=== PATIENT | male | born 1995 | race Caucasian/White ===

== ENCOUNTER 2023-06-21 20:56 | Inpatient (IN) | payer MEDICAID ==
[~2023-06-21] VITALS: Ht 175.3 cm; Wt 76.7 kg
[2023-06-21 22:29] LABS: BASOPHILS % (AUTO) 0.2 % (0-1); EOSINOPHILS % (AUTO) 0 % (0-6); HEMATOCRIT 46.3 % (42.0-52.0); HEMOGLOBIN 15.7 g/dl (14.0-17.9); LYMPHOCYTES # (AUTO) 1.6 X10'3 (1.1-4.8); LYMPHOCYTES % (AUTO) 14.3 % (21-51); MEAN CORPUSCULAR HEMOGLOBIN 29.8 PG (27.0-31.0); MEAN CORPUSCULAR HGB CONC 33.9 g/dL (33.0-36.5); MEAN PLATELET VOLUME 8.2 FL (7.4-10.4); MONOCYTES # (AUTO) 0.9 X10'3 (0-0.9); MONOCYTES % (AUTO) 8.4 % (2-12); NEUTROPHILS # (AUTO) 8.4 X10'3 (1.8-7.7); NEUTROPHILS % (AUTO) 77.1 % (42-75); PLATELET COUNT 187 X10'3 (140-440); RED BLOOD COUNT 5.26 X10'6 (4.70-6.10); RED CELL DISTRIBUTION WIDTH 13.8 % (11.5-14.5); WHITE BLOOD COUNT 10.9 X10'3 (4.5-11.0)
[2023-06-21 22:44] LABS: ALANINE AMINOTRANSFERASE 20 U/L (12-78); ALBUMIN 4.1 G/DL (3.4-5.0); ALBUMIN/GLOBULIN RATIO 1.1 (1.1-1.5); ALKALINE PHOSPHATASE 55 IU/L (46-116); ANION GAP 10 (8-16); ASPARTATE AMINO TRANSFERASE 19 U/L (10-37); BILIRUBIN,TOTAL 0.3 MG/DL (0.1-1.0); BLOOD UREA NITROGEN 9 MG/DL (7-18); CALCIUM 9.1 MG/DL (8.5-10.1); CHLORIDE 104 MMOL/L (99-107); ETHANOL < 10 MG/DL (<10); GLUCOSE 108 MG/DL (70-104); SODIUM 139 MMOL/L (135-145); TOTAL CARBON DIOXIDE 25.5 MMOL/L (24-32); TOTAL PROTEIN 7.7 G/DL (6.4-8.2); eCRCL 116 ML/MIN; eGFR > 90 ML/MIN
[2023-06-22 00:37] LABS: URINE AMPHETAMINE SCREEN NEGATIVE (Neg); URINE BARBITUATE SCREEN NEGATIVE (Neg); URINE BENZODIAZEPINES SCREEN NEGATIVE (Neg); URINE CANNABINOID SCREEN NEGATIVE (Neg); URINE COCAINE SCREEN NEGATIVE (Neg); URINE METHADONE SCREEN NEGATIVE (Neg); URINE OPIATE SCREEN NEGATIVE (Neg); URINE PHENCYCLIDINE SCREEN NEGATIVE (Neg)
[2023-06-22] MEDS ORDERED: BENZ1TAB93 PO (02:24)
[2023-06-22] MEDS ORDERED: CLOZ25TA36 PO (02:24)
[2023-06-22] MEDS ORDERED: CLON1TAB2 PO ×2 (02:24→02:50)
[2023-06-22] MEDS ORDERED: CLOZ200T8 PO (02:24)
[2023-06-22] MEDS ORDERED: LAMO100T PO (02:24)
[2023-06-22] MEDS ORDERED: IBUP-1984 PO (02:24)
[2023-06-22] MEDS ORDERED: CLOZ100T21 PO (02:24)
[2023-06-22] MEDS ORDERED: CLOZ50TA9 PO (02:38)
[2023-06-22] MEDS ORDERED: CLON-850 PO (02:57)
[2023-06-22] MEDS ORDERED: PROP10TA10 PO (03:55)
[2023-06-22] MEDS: clozapine 100mg tablet PO SCH ×2 (08:25→20:04)
[2023-06-22] MEDS: clozapine 25mg tablet PO SCH (08:26)
[2023-06-22] MEDS: ibuprofen tablet 400 MG TABLET PO SCH (08:26)
[2023-06-22] MEDS: propranolol 10mg tablet PO SCH (08:26)
[2023-06-22] MEDS: lamoTRIgine 100mg tablet PO SCH (08:26)
[2023-06-22] MEDS: benztropine 1mg tablet PO SCH (08:26)
[2023-06-22] MEDS: LORazepam 1 MG tablet PO ONE (20:03)
[2023-06-22] MEDS ORDERED: magnesium hydroxide 30ml (MOM) UD suspension PO PRN (22:05)
[2023-06-22] MEDS ORDERED: loperamide 2mg capsule PO PRN (22:05)
[2023-06-22 22:55] VITALS: BP 120/72; PULSE 93; RESP 16; TEMP 97.5; O2SAT 100
[2023-06-22] MEDS: NICOTINE POLACRILEX 2 MG LOZENGE BC PRN (23:01)
[2023-06-22] MEDS: clonazePAM 1mg tablet PO PRN (23:02)
[2023-06-22 23:16] VITALS: RESP 16
[2023-06-23 07:00] VITALS: RESP 16
[2023-06-23 08:00] VITALS: BP 90/62; PULSE 85; RESP 16; TEMP 97.1; O2SAT 98
[2023-06-23] MEDS: nicotine 21mg patch - 24 hr TD SCH (08:00)
[2023-06-23 08:57] LABS: CHOL/HDL RATIO 2.9 (0.00-4.99); CHOLESTEROL 140 MG/DL (0-200); HDL CHOLESTEROL 48 MG/DL (35-60); LDL CHOLESTEROL 66 MG/DL (50-100); TRIGLYCERIDES 222 MG/DL (20-135)
[2023-06-23 08:58] LABS: HEMOGLOBIN A1C 4.5 % (4.5-6.2)
[2023-06-23] MEDS: pneumococcal 23-VAL P-sac vacc 25 mcg/0.5ml vial IMVAC ONE (11:32)
[2023-06-23 19:00] VITALS: RESP 14; O2SAT 100
[2023-06-23 19:35] VITALS: BP 93/51; PULSE 97; RESP 14; TEMP 98.4; O2SAT 100
[2023-06-24 07:14] VITALS: RESP 16
[2023-06-24 08:00] VITALS: BP 116/67; PULSE 68; RESP 14; TEMP 97.9; O2SAT 99
[2023-06-24 19:00] VITALS: RESP 14; O2SAT 96
[2023-06-24 20:32] VITALS: BP 94/52; PULSE 107; RESP 14; TEMP 98.7; O2SAT 96
[2023-06-24] MEDS: LORazepam 1 MG tablet PO ONE (21:56)
[2023-06-25 07:00] VITALS: RESP 14; O2SAT 98
[2023-06-25 08:00] VITALS: BP 110/62; PULSE 87; RESP 14; TEMP 97.6; O2SAT 98
[2023-06-25 19:00] VITALS: RESP 16; O2SAT 100
[2023-06-25 20:00] VITALS: BP 128/84; PULSE 110; RESP 16; TEMP 97.6; O2SAT 100
[2023-06-26 07:00] VITALS: RESP 16; O2SAT 100
[2023-06-26 08:00] VITALS: BP 119/86; PULSE 97; RESP 16; TEMP 97.2; O2SAT 100
[2023-06-26 08:13] LABS: BASOPHILS % (AUTO) 0.2 % (0-1); EOSINOPHILS % (AUTO) 0 % (0-6); HEMOGLOBIN 14.9 g/dl (14.0-17.9); LYMPHOCYTES % (AUTO) 35.3 % (21-51); MEAN CORPUSCULAR HEMOGLOBIN 29.9 PG (27.0-31.0); MEAN CORPUSCULAR HGB CONC 33.9 g/dL (33.0-36.5); MEAN CORPUSCULAR VOLUME 88.4 FL (78-98); MEAN PLATELET VOLUME 8.5 FL (7.4-10.4); MONOCYTES # (AUTO) 0.6 X10'3 (0-0.9); MONOCYTES % (AUTO) 10.4 % (2-12); NEUTROPHILS % (AUTO) 54.1 % (42-75); PLATELET COUNT 166 X10'3 (140-440); RED BLOOD COUNT 4.97 X10'6 (4.70-6.10); RED CELL DISTRIBUTION WIDTH 13.6 % (11.5-14.5); WHITE BLOOD COUNT 5.6 X10'3 (4.5-11.0)
[2023-06-26 19:00] VITALS: RESP 18; O2SAT 99
[2023-06-26 20:00] VITALS: BP 138/85; PULSE 93; RESP 18; TEMP 98.2; O2SAT 99
[2023-06-26] MEDS: NICOTINE POLACRILEX 2 MG LOZENGE BC PRN (21:54)
[2023-06-27 07:00] VITALS: RESP 16; O2SAT 99
[2023-06-27 08:00] VITALS: BP 110/80; PULSE 74; RESP 16; TEMP 97.7; O2SAT 99
[2023-06-27 19:00] VITALS: RESP 18; O2SAT 98
[2023-06-27 20:00] VITALS: BP 141/81; PULSE 100; RESP 18; TEMP 97.6; O2SAT 98
[2023-06-28 07:00] VITALS: RESP 16; O2SAT 98
[2023-06-28 08:00] VITALS: BP 90/60; PULSE 84; RESP 16; TEMP 98.2; O2SAT 98
[2023-06-28 19:00] VITALS: RESP 16; O2SAT 100
[2023-06-28 19:07] VITALS: BP 124/80; PULSE 99; RESP 16; TEMP 97.8; O2SAT 100
[2023-06-29] MEDS: clonazePAM 1mg tablet PO PRN (02:27)
[2023-06-29 07:30] VITALS: BP 98/62; PULSE 86; RESP 12; TEMP 97.8; O2SAT 97
[2023-06-29 19:00] VITALS: RESP 14; O2SAT 99
[2023-06-29 20:00] VITALS: BP 126/74; PULSE 120; RESP 14; TEMP 98; O2SAT 99
[2023-06-29] MEDS: clozapine 100mg tablet PO SCH (20:22)
[2023-06-29] MEDS: clozapine 25mg tablet PO SCH (20:24)
[2023-06-29 22:49] VITALS: PULSE 106
[2023-06-30 07:00] VITALS: RESP 14; O2SAT 98
[2023-06-30 08:00] VITALS: BP 92/55; PULSE 104; RESP 14; TEMP 97.7; O2SAT 98
[2023-06-30 19:32] VITALS: BP 122/79; PULSE 110; RESP 18; TEMP 98.5; O2SAT 99
[2023-07-01 07:00] VITALS: RESP 14; O2SAT 98
[2023-07-01 08:00] VITALS: BP 99/56; PULSE 79; RESP 14; TEMP 97.1; O2SAT 97
[2023-07-01 12:06] LABS: BASOPHILS % (AUTO) 0.5 % (0-1); EOSINOPHILS % (AUTO) 0 % (0-6); HEMATOCRIT 47.1 % (42.0-52.0); HEMOGLOBIN 15.9 g/dl (14.0-17.9); LYMPHOCYTES # (AUTO) 1.3 X10'3 (1.1-4.8); LYMPHOCYTES % (AUTO) 26.3 % (21-51); MEAN CORPUSCULAR HEMOGLOBIN 29.7 PG (27.0-31.0); MEAN CORPUSCULAR HGB CONC 33.8 g/dL (33.0-36.5); MEAN CORPUSCULAR VOLUME 87.9 FL (78-98); MEAN PLATELET VOLUME 8.2 FL (7.4-10.4); MONOCYTES # (AUTO) 0.7 X10'3 (0-0.9); MONOCYTES % (AUTO) 13.4 % (2-12); NEUTROPHILS # (AUTO) 3.1 X10'3 (1.8-7.7); NEUTROPHILS % (AUTO) 59.8 % (42-75); PLATELET COUNT 166 X10'3 (140-440); RED BLOOD COUNT 5.36 X10'6 (4.70-6.10); RED CELL DISTRIBUTION WIDTH 13.7 % (11.5-14.5); WHITE BLOOD COUNT 5.1 X10'3 (4.5-11.0)
[2023-07-01 19:00] VITALS: RESP 16; O2SAT 97
[2023-07-01 20:00] VITALS: BP 118/79; PULSE 104; RESP 16; TEMP 98.1; O2SAT 97
[2023-07-01] MEDS: OLANZapine **IM** 10 mg inj. IM ONE (22:07)
[2023-07-02] MEDS: LORazepam 2 mg/ml vial IM ONE (00:16)
[2023-07-02] MEDS: haloperidol lactate 5mg/ml inj IM ONE (01:52)
[2023-07-02 06:43] VITALS: RESP 14; O2SAT 98
[2023-07-02 08:00] VITALS: BP 98/65; PULSE 59
[2023-07-02] MEDS: acetaminophen 325mg tablet PO PRN (14:20)
[2023-07-02 19:00] VITALS: RESP 16; O2SAT 100
[2023-07-02 20:00] VITALS: BP 129/89; PULSE 120; RESP 16; TEMP 97.3; O2SAT 100
[2023-07-02] MEDS: propranolol 10mg tablet PO SCH (22:06)
[2023-07-03 07:58] VITALS: RESP 14; O2SAT 98
[2023-07-03 08:03] VITALS: BP 109/59; PULSE 105; RESP 18; TEMP 97.9; O2SAT 99
[2023-07-03 08:16] LABS: BASOPHILS % (AUTO) 0.3 % (0-1); EOSINOPHILS % (AUTO) 0 % (0-6); HEMATOCRIT 43.5 % (42.0-52.0); HEMOGLOBIN 14.5 g/dl (14.0-17.9); LYMPHOCYTES # (AUTO) 2.4 X10'3 (1.1-4.8); LYMPHOCYTES % (AUTO) 30.5 % (21-51); MEAN CORPUSCULAR HEMOGLOBIN 29.5 PG (27.0-31.0); MEAN CORPUSCULAR HGB CONC 33.4 g/dL (33.0-36.5); MEAN CORPUSCULAR VOLUME 88.4 FL (78-98); MEAN PLATELET VOLUME 8.5 FL (7.4-10.4); MONOCYTES # (AUTO) 1.2 X10'3 (0-0.9); MONOCYTES % (AUTO) 14.6 % (2-12); NEUTROPHILS # (AUTO) 4.4 X10'3 (1.8-7.7); NEUTROPHILS % (AUTO) 54.6 % (42-75); PLATELET COUNT 175 X10'3 (140-440); RED BLOOD COUNT 4.92 X10'6 (4.70-6.10); RED CELL DISTRIBUTION WIDTH 13.4 % (11.5-14.5)
[2023-07-03 19:00] VITALS: RESP 14; O2SAT 98
[2023-07-03 20:00] VITALS: BP 117/71; PULSE 119; RESP 14; TEMP 98.2; O2SAT 98
[2023-07-03 22:22] VITALS: PULSE 101
[2023-07-04 07:00] VITALS: RESP 14; O2SAT 98
[2023-07-04 07:03] VITALS: BP 105/61; PULSE 89; RESP 14; TEMP 98.2; O2SAT 98
[2023-07-04 19:00] VITALS: RESP 16; O2SAT 98
[2023-07-04 20:00] VITALS: BP 122/71; PULSE 110; RESP 16; TEMP 98.7; O2SAT 98
[2023-07-05 07:00] VITALS: RESP 16; O2SAT 97
[2023-07-05 08:00] VITALS: BP 110/63; PULSE 87; RESP 16; TEMP 98.2; O2SAT 97
[2023-07-05 19:00] VITALS: RESP 16; O2SAT 99
[2023-07-05 20:00] VITALS: BP 122/69; PULSE 112; RESP 16; TEMP 98.7; O2SAT 99
[2023-07-06 07:30] VITALS: BP 109/49; PULSE 90; RESP 18; TEMP 98.4; O2SAT 97
[2023-07-06 19:00] VITALS: RESP 16; O2SAT 99
[2023-07-06 20:00] VITALS: BP 128/80; PULSE 116; RESP 16; TEMP 97; O2SAT 99
[2023-07-07 07:00] VITALS: RESP 18; O2SAT 97
[2023-07-07 08:00] VITALS: BP 91/50; PULSE 83; RESP 16; TEMP 97.6; O2SAT 98
[2023-07-07 19:30] VITALS: BP 134/83; PULSE 125; RESP 16; TEMP 98.4; O2SAT 98
[2023-07-08 07:00] VITALS: RESP 18; O2SAT 97
[2023-07-08 08:00] VITALS: BP 95/53; PULSE 97; RESP 16; TEMP 98.5; O2SAT 96
[2023-07-08 19:30] VITALS: BP 117/87; PULSE 115; RESP 14; TEMP 98.3; O2SAT 100
[2023-07-09 07:00] VITALS: RESP 18; O2SAT 99
[2023-07-09 08:00] VITALS: BP 91/56; PULSE 88; RESP 18; TEMP 97.9; O2SAT 99
[2023-07-09] MEDS ORDERED: ibuprofen tablet 400 MG TABLET PO PRN (15:30)
[2023-07-09 19:00] VITALS: RESP 20; O2SAT 99
[2023-07-09 19:44] VITALS: BP 119/80; PULSE 121; RESP 20; TEMP 97.7; O2SAT 99
[2023-07-09] MEDS: OLANZapine 5mg rapidly disint. tablet PO ONE (21:25)
[2023-07-10 07:00] VITALS: RESP 16; O2SAT 100
[2023-07-10 07:18] VITALS: BP 113/77; PULSE 98; RESP 16; TEMP 98.2; O2SAT 100
[2023-07-10 10:41] LABS: BASOPHILS % (AUTO) 0.5 % (0-1); EOSINOPHILS % (AUTO) 0 % (0-6); HEMATOCRIT 42.1 % (42.0-52.0); HEMOGLOBIN 14.6 g/dl (14.0-17.9); LYMPHOCYTES # (AUTO) 1.8 X10'3 (1.1-4.8); LYMPHOCYTES % (AUTO) 26.4 % (21-51); MEAN CORPUSCULAR HEMOGLOBIN 30.1 PG (27.0-31.0); MEAN CORPUSCULAR HGB CONC 34.8 g/dL (33.0-36.5); MEAN CORPUSCULAR VOLUME 86.7 FL (78-98); MEAN PLATELET VOLUME 8.2 FL (7.4-10.4); MONOCYTES # (AUTO) 0.9 X10'3 (0-0.9); MONOCYTES % (AUTO) 13.1 % (2-12); NEUTROPHILS # (AUTO) 4.2 X10'3 (1.8-7.7); PLATELET COUNT 182 X10'3 (140-440); RED BLOOD COUNT 4.86 X10'6 (4.70-6.10); RED CELL DISTRIBUTION WIDTH 13.3 % (11.5-14.5)
[2023-07-10 19:00] VITALS: RESP 16; O2SAT 98
[2023-07-10 20:00] VITALS: BP 125/80; PULSE 112; RESP 16; TEMP 97.8; O2SAT 98
[2023-07-11 07:00] VITALS: RESP 14; O2SAT 97
[2023-07-11 07:15] VITALS: BP 92/64; PULSE 81; RESP 14; TEMP 98.2; O2SAT 97
[2023-07-11 19:00] VITALS: RESP 16; O2SAT 99
[2023-07-11 19:18] VITALS: BP 124/76; PULSE 112; RESP 16; TEMP 98.2; O2SAT 99
[2023-07-12 07:00] VITALS: RESP 14; O2SAT 99
[2023-07-12 08:00] VITALS: BP 116/75; PULSE 108; RESP 14; TEMP 97.7; O2SAT 99
[2023-07-12 19:00] VITALS: RESP 18; O2SAT 98
[2023-07-12 19:15] VITALS: BP 121/87; PULSE 109; RESP 18; TEMP 98.6; O2SAT 98
[2023-07-13 07:00] VITALS: RESP 16; O2SAT 97
[2023-07-13 07:15] VITALS: BP 108/69; PULSE 94; RESP 16; TEMP 98.2; O2SAT 97
[2023-07-13 19:25] VITALS: BP 116/70; PULSE 107; RESP 18; TEMP 98.9; O2SAT 98
[2023-07-13 19:26] VITALS: RESP 18; O2SAT 98
[2023-07-14 07:00] VITALS: RESP 16; O2SAT 98
[2023-07-14 08:00] VITALS: BP 142/58; PULSE 89; RESP 16; TEMP 97.8; O2SAT 98
[2023-07-14 19:00] VITALS: BP 122/78; PULSE 111; RESP 18; TEMP 98.6; O2SAT 99
[2023-07-15 07:00] VITALS: RESP 16; O2SAT 96
[2023-07-15 08:00] VITALS: BP 101/64; PULSE 99; RESP 16; TEMP 97.7; O2SAT 95
[2023-07-15 19:00] VITALS: RESP 18; O2SAT 98
[2023-07-15 20:00] VITALS: BP 130/87; PULSE 111; RESP 18; TEMP 98.6; O2SAT 98
[2023-07-16 07:00] VITALS: BP 99/52; PULSE 89; RESP 14; TEMP 98.4; O2SAT 99
[2023-07-16 19:15] VITALS: BP 121/77; PULSE 110; RESP 16; TEMP 98.8; O2SAT 100
[2023-07-17 07:00] VITALS: BP 90/50; PULSE 74; RESP 16; TEMP 97.9; O2SAT 95
[2023-07-17 10:35] LABS: BASOPHILS % (AUTO) 0.4 % (0-1); EOSINOPHILS % (AUTO) 0 % (0-6); HEMATOCRIT 44.5 % (42.0-52.0); HEMOGLOBIN 15.2 g/dl (14.0-17.9); LYMPHOCYTES # (AUTO) 1.4 X10'3 (1.1-4.8); MEAN CORPUSCULAR HGB CONC 34.2 g/dL (33.0-36.5); MEAN CORPUSCULAR VOLUME 87.6 FL (78-98); MEAN PLATELET VOLUME 8.1 FL (7.4-10.4); MONOCYTES # (AUTO) 0.6 X10'3 (0-0.9); MONOCYTES % (AUTO) 12.9 % (2-12); NEUTROPHILS # (AUTO) 2.3 X10'3 (1.8-7.7); NEUTROPHILS % (AUTO) 53.7 % (42-75); PLATELET COUNT 170 X10'3 (140-440); RED BLOOD COUNT 5.07 X10'6 (4.70-6.10); RED CELL DISTRIBUTION WIDTH 13.3 % (11.5-14.5); WHITE BLOOD COUNT 4.3 X10'3 (4.5-11.0)
[2023-07-17 19:53] VITALS: BP 133/92; PULSE 129; RESP 18; TEMP 98.4; O2SAT 100
[2023-07-18 07:00] VITALS: RESP 16; O2SAT 95
[2023-07-18 08:00] VITALS: BP 92/54; PULSE 62; RESP 16; TEMP 98.4; O2SAT 95
[2023-07-18 19:39] VITALS: BP 134/93; PULSE 118; RESP 18; TEMP 98.4; O2SAT 100
[2023-07-19 07:00] VITALS: RESP 16; O2SAT 97
[2023-07-19 08:00] VITALS: BP 105/58; PULSE 92; RESP 16; TEMP 97.6; O2SAT 97
[2023-07-19 19:00] VITALS: RESP 16; O2SAT 100
[2023-07-19 19:12] VITALS: BP 133/84; PULSE 110; RESP 16; TEMP 98.6; O2SAT 100
[2023-07-20 07:00] VITALS: RESP 14; O2SAT 98
[2023-07-20 07:46] VITALS: BP 92/52; PULSE 78; RESP 14; TEMP 98.4; O2SAT 98
[2023-07-20 19:00] VITALS: RESP 16; O2SAT 99
[2023-07-20 19:37] VITALS: BP 135/94; PULSE 120; RESP 16; TEMP 98.7; O2SAT 99
[2023-07-21 07:05] VITALS: RESP 14; O2SAT 98
[2023-07-21 08:00] VITALS: BP 108/64; PULSE 89; RESP 14; TEMP 97.8; O2SAT 99
[2023-07-21 19:00] VITALS: RESP 17; O2SAT 100
[2023-07-21 20:00] VITALS: BP 129/86; PULSE 125; RESP 17; TEMP 98.4; O2SAT 100
[2023-07-22 06:33] LABS: BASOPHILS % (AUTO) 0.4 % (0-1); EOSINOPHILS % (AUTO) 0 % (0-6); HEMATOCRIT 45.2 % (42.0-52.0); HEMOGLOBIN 15.6 g/dl (14.0-17.9); LYMPHOCYTES % (AUTO) 39.8 % (21-51); MEAN CORPUSCULAR HEMOGLOBIN 30.2 PG (27.0-31.0); MEAN CORPUSCULAR HGB CONC 34.5 g/dL (33.0-36.5); MEAN CORPUSCULAR VOLUME 87.6 FL (78-98); MEAN PLATELET VOLUME 8.5 FL (7.4-10.4); MONOCYTES # (AUTO) 0.6 X10'3 (0-0.9); MONOCYTES % (AUTO) 11.8 % (2-12); NEUTROPHILS # (AUTO) 2.4 X10'3 (1.8-7.7); PLATELET COUNT 174 X10'3 (140-440); RED BLOOD COUNT 5.15 X10'6 (4.70-6.10); RED CELL DISTRIBUTION WIDTH 13.1 % (11.5-14.5); WHITE BLOOD COUNT 5.1 X10'3 (4.5-11.0)
[2023-07-22 08:00] VITALS: BP 97/59; PULSE 86; RESP 12; TEMP 97.7; O2SAT 99
[2023-07-22 19:00] VITALS: BP 121/78; PULSE 120; RESP 17; TEMP 98.2; O2SAT 99
[2023-07-23 07:20] VITALS: RESP 18; O2SAT 96
[2023-07-23 08:00] VITALS: BP 120/69; PULSE 88; RESP 14; TEMP 97.6; O2SAT 100
[2023-07-23 19:00] VITALS: BP 129/72; PULSE 122; RESP 18; TEMP 98.9; O2SAT 99
[2023-07-24 07:00] VITALS: RESP 16; O2SAT 96
[2023-07-24 08:00] VITALS: BP 108/80; PULSE 83; RESP 16; TEMP 98.6; O2SAT 96
[2023-07-24 10:08] LABS: MEAN PLATELET VOLUME 8.7 FL (7.4-10.4); WHITE BLOOD COUNT 4.7 X10'3 (4.5-11.0)
[2023-07-24 10:11] LABS: BASOPHILS % (AUTO) 0.3 % (0-1); EOSINOPHILS % (AUTO) 0.1 % (0-6); HEMATOCRIT 42.7 % (42.0-52.0); HEMOGLOBIN 14.8 g/dl (14.0-17.9); LYMPHOCYTES # (AUTO) 1.9 X10'3 (1.1-4.8); LYMPHOCYTES % (AUTO) 41.4 % (21-51); MEAN CORPUSCULAR HEMOGLOBIN 30.4 PG (27.0-31.0); MEAN CORPUSCULAR HGB CONC 34.7 g/dL (33.0-36.5); MEAN CORPUSCULAR VOLUME 87.5 FL (78-98); MONOCYTES # (AUTO) 0.5 X10'3 (0-0.9); MONOCYTES % (AUTO) 10.9 % (2-12); NEUTROPHILS # (AUTO) 2.2 X10'3 (1.8-7.7); NEUTROPHILS % (AUTO) 47.3 % (42-75); PLATELET COUNT 164 X10'3 (140-440); RED BLOOD COUNT 4.88 X10'6 (4.70-6.10); RED CELL DISTRIBUTION WIDTH 13.2 % (11.5-14.5)
[2023-07-24 19:00] VITALS: RESP 18; O2SAT 100
[2023-07-24 19:20] VITALS: BP 126/89; PULSE 118; RESP 18; TEMP 98.3; O2SAT 100
[2023-07-25 07:30] VITALS: BP 99/54; PULSE 92; RESP 16; TEMP 97.8; O2SAT 92
[2023-07-25 19:24] VITALS: BP 122/78; PULSE 116; RESP 16; TEMP 97.9; O2SAT 100
[2023-07-25 19:31] VITALS: RESP 16; O2SAT 100
[2023-07-26 07:00] VITALS: RESP 14; O2SAT 98
[2023-07-26 08:00] VITALS: BP 97/57; PULSE 83; RESP 14; TEMP 97.4; O2SAT 98
[2023-07-26 19:40] VITALS: BP 120/84; PULSE 130; RESP 16; TEMP 98.1; O2SAT 98
[2023-07-27 07:30] VITALS: BP 117/62; PULSE 92; RESP 14; TEMP 98.2; O2SAT 96
[2023-07-27 19:00] VITALS: BP 114/72; PULSE 112; RESP 18; TEMP 98.5; O2SAT 100
[2023-07-28 06:58] VITALS: RESP 14; O2SAT 96
[2023-07-28 08:00] VITALS: BP 98/50; PULSE 96; RESP 12; TEMP 98.1; O2SAT 96
[2023-07-28 19:30] VITALS: BP 123/81; PULSE 122; RESP 20; TEMP 97.9; O2SAT 98
[2023-07-29 07:39] VITALS: RESP 14; O2SAT 96
[2023-07-29 08:00] VITALS: BP 91/44; PULSE 84; RESP 16; TEMP 97.8; O2SAT 98
[2023-07-29 19:30] VITALS: BP 123/90; PULSE 120; RESP 20; TEMP 98.2; O2SAT 100
[2023-07-29] MEDS: olanzapine 10mg tablet PO ONE (21:34)
[2023-07-30 07:40] VITALS: RESP 16; O2SAT 97
[2023-07-30 08:00] VITALS: BP 95/57; PULSE 87; RESP 16; TEMP 97; O2SAT 97
[2023-07-30 19:00] VITALS: RESP 16; O2SAT 100
[2023-07-30 20:07] VITALS: BP 128/80; PULSE 118; RESP 18; TEMP 98.2; O2SAT 100
[2023-07-31 07:00] VITALS: BP 107/64; PULSE 60; RESP 16; TEMP 97.2; O2SAT 95
[2023-07-31 10:43] LABS: BASOPHILS % (AUTO) 0.4 % (0-1); EOSINOPHILS % (AUTO) 0 % (0-6); HEMATOCRIT 44.8 % (42.0-52.0); HEMOGLOBIN 15.2 g/dl (14.0-17.9); LYMPHOCYTES # (AUTO) 1.7 X10'3 (1.1-4.8); LYMPHOCYTES % (AUTO) 27.7 % (21-51); MEAN CORPUSCULAR HEMOGLOBIN 29.6 PG (27.0-31.0); MEAN CORPUSCULAR VOLUME 87.1 FL (78-98); MEAN PLATELET VOLUME 8.4 FL (7.4-10.4); MONOCYTES # (AUTO) 0.7 X10'3 (0-0.9); MONOCYTES % (AUTO) 11.7 % (2-12); NEUTROPHILS # (AUTO) 3.8 X10'3 (1.8-7.7); NEUTROPHILS % (AUTO) 60.2 % (42-75); PLATELET COUNT 158 X10'3 (140-440); RED BLOOD COUNT 5.14 X10'6 (4.70-6.10); WHITE BLOOD COUNT 6.3 X10'3 (4.5-11.0)
[2023-07-31 19:00] VITALS: RESP 18; O2SAT 100
[2023-07-31 19:53] VITALS: BP 130/89; PULSE 116; RESP 18; TEMP 97.8; O2SAT 100
[2023-08-01 07:00] VITALS: BP 98/54; PULSE 94; RESP 18; TEMP 98.1; O2SAT 99
[2023-08-01 19:00] VITALS: RESP 18; O2SAT 99
[2023-08-01 20:57] VITALS: BP 143/83; PULSE 108; RESP 18; TEMP 98.5; O2SAT 99
[2023-08-02 07:00] VITALS: RESP 12; O2SAT 97
[2023-08-02 08:00] VITALS: BP_SYST 107; BP_SYST 94; BP_DIAS 57; BP_DIAS 69; PULSE 60; PULSE 99; RESP 12; TEMP 97.2; TEMP 98.1; O2SAT 96; O2SAT 97
[2023-08-02 19:00] VITALS: RESP 16; O2SAT 99
[2023-08-02 20:00] VITALS: BP 140/74; PULSE 114; RESP 16; TEMP 98.4; O2SAT 99
[2023-08-03 07:30] VITALS: BP 110/68; PULSE 90; RESP 16; TEMP 97.6; O2SAT 100
[2023-08-03 19:00] VITALS: RESP 14; O2SAT 100
[2023-08-03 20:00] VITALS: BP 120/81; PULSE 107; RESP 14; TEMP 98.1; O2SAT 100
[2023-08-04] MEDS: traZODone 50mg tablet PO PRN (02:15)
[2023-08-04 07:00] VITALS: BP 125/68; PULSE 110; RESP 16; TEMP 98.6; O2SAT 98
[2023-08-04 19:00] VITALS: RESP 20; O2SAT 100
[2023-08-04 19:30] VITALS: BP 136/96; PULSE 114; RESP 20; TEMP 98.5; O2SAT 100
[2023-08-05 07:00] VITALS: RESP 16; O2SAT 95
[2023-08-05 08:00] VITALS: BP 81/51; PULSE 85; RESP 16; TEMP 97.8; O2SAT 98
[2023-08-05 19:00] VITALS: RESP 16; O2SAT 98
[2023-08-05 20:00] VITALS: BP 137/80; PULSE 136; RESP 16; TEMP 97.8; O2SAT 98
[2023-08-06 07:00] VITALS: RESP 14; O2SAT 97
[2023-08-06 08:00] VITALS: BP 91/50; PULSE 104; RESP 14; TEMP 97.7; O2SAT 97
[2023-08-06 19:00] VITALS: RESP 14; O2SAT 97
[2023-08-06 20:00] VITALS: BP 128/72; PULSE 110; RESP 14; TEMP 98.5; O2SAT 97
[2023-08-07 07:00] VITALS: RESP 14; O2SAT 99
[2023-08-07 08:00] VITALS: BP 101/60; PULSE 71; RESP 14; TEMP 97.6; O2SAT 99
[2023-08-07 08:55] LABS: BASOPHILS % (AUTO) 0.2 % (0-1); EOSINOPHILS % (AUTO) 0 % (0-6); HEMATOCRIT 48.5 % (42.0-52.0); HEMOGLOBIN 16.6 g/dl (14.0-17.9); LYMPHOCYTES # (AUTO) 1.8 X10'3 (1.1-4.8); LYMPHOCYTES % (AUTO) 29.5 % (21-51); MEAN CORPUSCULAR HEMOGLOBIN 29.9 PG (27.0-31.0); MEAN CORPUSCULAR HGB CONC 34.2 g/dL (33.0-36.5); MEAN CORPUSCULAR VOLUME 87.2 FL (78-98); MEAN PLATELET VOLUME 8.1 FL (7.4-10.4); MONOCYTES # (AUTO) 0.6 X10'3 (0-0.9); MONOCYTES % (AUTO) 9.8 % (2-12); NEUTROPHILS # (AUTO) 3.7 X10'3 (1.8-7.7); NEUTROPHILS % (AUTO) 60.5 % (42-75); PLATELET COUNT 181 X10'3 (140-440); RED BLOOD COUNT 5.56 X10'6 (4.70-6.10); RED CELL DISTRIBUTION WIDTH 13.2 % (11.5-14.5); WHITE BLOOD COUNT 6.1 X10'3 (4.5-11.0)
[2023-08-07 19:50] VITALS: RESP 20; O2SAT 99
[2023-08-07 20:00] VITALS: BP 134/72; PULSE 137; RESP 20; TEMP 98.4; O2SAT 99
[2023-08-08 07:00] VITALS: RESP 14; O2SAT 99
[2023-08-08 08:00] VITALS: BP 97/60; PULSE 89; RESP 14; TEMP 97.3; O2SAT 99
[2023-08-08 19:00] VITALS: RESP 16; O2SAT 99
[2023-08-08 20:08] VITALS: BP 115/77; PULSE 126; RESP 16; TEMP 98.8; O2SAT 99
[2023-08-09 07:00] VITALS: RESP 14; O2SAT 98
[2023-08-09 08:00] VITALS: BP 102/70; PULSE 98; RESP 14; TEMP 96.6; O2SAT 98
[2023-08-09 19:00] VITALS: BP 117/75; PULSE 120; RESP 14; TEMP 97.9; O2SAT 100
[2023-08-10 07:00] VITALS: RESP 19; O2SAT 98
[2023-08-10 08:00] VITALS: BP 98/51; PULSE 99; RESP 19; TEMP 99.3; O2SAT 98
[2023-08-10 08:09] VITALS: BP 110/70; PULSE 104
[2023-08-10 19:27] VITALS: BP 131/79; PULSE 128; RESP 20; TEMP 98.1; O2SAT 99
[2023-08-11 07:00] VITALS: BP 95/58; PULSE 85; RESP 12; TEMP 96.6; O2SAT 98
[2023-08-11] MEDS: clozapine 25mg tablet PO SCH (11:38)
[2023-08-11 19:38] VITALS: BP 133/86; PULSE 133; RESP 20; TEMP 97.8; O2SAT 100
[2023-08-12 07:33] VITALS: BP 98/51; PULSE 90; RESP 16; TEMP 97.5; O2SAT 98
[2023-08-12 19:00] VITALS: BP 135/83; PULSE 124; RESP 18; TEMP 98.7; O2SAT 98
[2023-08-13 07:00] VITALS: BP 85/54; PULSE 93; RESP 16; TEMP 97.8; O2SAT 99
[2023-08-13] MEDS: clozapine 25mg tablet PO ONE (16:46)
[2023-08-13 19:00] VITALS: RESP 18; O2SAT 98
[2023-08-13 20:07] VITALS: BP 142/85; PULSE 137; RESP 18; TEMP 97.8; O2SAT 98
[2023-08-14 07:00] VITALS: RESP 17; O2SAT 97
[2023-08-14 08:00] VITALS: BP 91/55; PULSE 90; RESP 17; TEMP 98; O2SAT 97
[2023-08-14] MEDS: clozapine 100mg tablet PO SCH (12:30)
[2023-08-14 14:56] LABS: BASOPHILS % (AUTO) 0.3 % (0-1); EOSINOPHILS % (AUTO) 0 % (0-6); HEMATOCRIT 44.8 % (42.0-52.0); HEMOGLOBIN 15.1 g/dl (14.0-17.9); LYMPHOCYTES # (AUTO) 1.2 X10'3 (1.1-4.8); LYMPHOCYTES % (AUTO) 21.8 % (21-51); MEAN CORPUSCULAR HEMOGLOBIN 29.2 PG (27.0-31.0); MEAN CORPUSCULAR HGB CONC 33.6 g/dL (33.0-36.5); MEAN CORPUSCULAR VOLUME 86.9 FL (78-98); MEAN PLATELET VOLUME 8.2 FL (7.4-10.4); MONOCYTES # (AUTO) 0.5 X10'3 (0-0.9); MONOCYTES % (AUTO) 9.5 % (2-12); NEUTROPHILS # (AUTO) 3.8 X10'3 (1.8-7.7); NEUTROPHILS % (AUTO) 68.4 % (42-75); PLATELET COUNT 168 X10'3 (140-440); RED BLOOD COUNT 5.16 X10'6 (4.70-6.10); RED CELL DISTRIBUTION WIDTH 13.1 % (11.5-14.5); WHITE BLOOD COUNT 5.5 X10'3 (4.5-11.0)
[2023-08-14 19:30] VITALS: BP 120/74; PULSE 108; RESP 16; TEMP 98.6; O2SAT 98
[2023-08-15 07:00] VITALS: RESP 16; O2SAT 98
[2023-08-15 07:52] VITALS: BP 99/50; PULSE 83; RESP 16; TEMP 97.7; O2SAT 98
[2023-08-15 20:31] VITALS: BP 128/79; PULSE 114; RESP 16; TEMP 98.1; O2SAT 99
[2023-08-15 23:23] VITALS: RESP 16; O2SAT 98
[2023-08-16 07:00] VITALS: RESP 12; O2SAT 97
[2023-08-16 08:00] VITALS: BP 96/66; PULSE 102; RESP 12; TEMP 97.2; O2SAT 97
[2023-08-16] MEDS: mag hydrox/Alum hydrox/simeth 30ml oral suspension PO PRN (08:22)
[2023-08-16 19:30] VITALS: BP 131/94; PULSE 118; RESP 18; TEMP 97.5; O2SAT 100
[2023-08-17 07:00] VITALS: RESP 16; O2SAT 95
[2023-08-17 08:41] VITALS: BP 110/62; PULSE 106; RESP 17; TEMP 98.4; O2SAT 96
[2023-08-17 19:00] VITALS: BP 140/93; PULSE 120; RESP 16; TEMP 98.1; O2SAT 99
[2023-08-18 07:00] VITALS: RESP 16; O2SAT 97
[2023-08-18 08:00] VITALS: BP 97/65; PULSE 114; RESP 14; TEMP 98.1; O2SAT 97
[2023-08-18 19:00] VITALS: BP 135/78; PULSE 110; RESP 15; TEMP 97.6; O2SAT 100
[2023-08-19 07:00] VITALS: BP 98/62; PULSE 95; RESP 12; TEMP 97.8; O2SAT 98
[2023-08-19 19:00] VITALS: RESP 18; O2SAT 99
[2023-08-19 20:00] VITALS: BP 150/96; PULSE 98; RESP 18; TEMP 98.2; O2SAT 99
[2023-08-20 07:00] VITALS: RESP 16; O2SAT 99
[2023-08-20 08:00] VITALS: BP 108/67; PULSE 119; RESP 16; TEMP 98.4; O2SAT 99
[2023-08-20 19:35] VITALS: BP 132/84; PULSE 128; RESP 16; TEMP 97.2; O2SAT 100
[2023-08-20 19:59] VITALS: RESP 17; O2SAT 100
[2023-08-21 07:00] VITALS: BP 112/68; PULSE 97; RESP 15; TEMP 98; O2SAT 100
[2023-08-21 13:32] LABS: BASOPHILS % (AUTO) 0.3 % (0-1); EOSINOPHILS % (AUTO) 0 % (0-6); HEMATOCRIT 48.6 % (42.0-52.0); HEMOGLOBIN 16.3 g/dl (14.0-17.9); LYMPHOCYTES # (AUTO) 1.4 X10'3 (1.1-4.8); LYMPHOCYTES % (AUTO) 24.8 % (21-51); MEAN CORPUSCULAR HEMOGLOBIN 29.3 PG (27.0-31.0); MEAN CORPUSCULAR HGB CONC 33.5 g/dL (33.0-36.5); MEAN CORPUSCULAR VOLUME 87.6 FL (78-98); MEAN PLATELET VOLUME 7.9 FL (7.4-10.4); MONOCYTES # (AUTO) 0.6 X10'3 (0-0.9); MONOCYTES % (AUTO) 9.6 % (2-12); NEUTROPHILS # (AUTO) 3.8 X10'3 (1.8-7.7); NEUTROPHILS % (AUTO) 65.3 % (42-75); PLATELET COUNT 174 X10'3 (140-440); RED BLOOD COUNT 5.54 X10'6 (4.70-6.10); RED CELL DISTRIBUTION WIDTH 13.1 % (11.5-14.5); WHITE BLOOD COUNT 5.8 X10'3 (4.5-11.0)
[2023-08-21 19:06] VITALS: RESP 16
[2023-08-21 19:25] VITALS: BP 146/86; PULSE 118; RESP 18; TEMP 97.4; O2SAT 100
[2023-08-22 07:00] VITALS: BP 108/68; PULSE 97; RESP 16; TEMP 97.6; O2SAT 100
[2023-08-22 19:45] VITALS: BP 102/60; PULSE 111; RESP 16; TEMP 97.7; O2SAT 100
[2023-08-23 07:30] VITALS: BP 100/53; PULSE 100; RESP 16; TEMP 97.7; O2SAT 99
[2023-08-23 19:00] VITALS: BP 124/85; PULSE 113; RESP 16; TEMP 97.6; O2SAT 97
[2023-08-24 07:30] VITALS: RESP 16; O2SAT 97
[2023-08-24 08:00] VITALS: BP 116/69; PULSE 121; PULSE 124; RESP 16; TEMP 98; O2SAT 97
[2023-08-24 19:48] VITALS: BP 103/63; PULSE 111; RESP 15; TEMP 98.3; O2SAT 99
[2023-08-25 07:30] VITALS: BP 114/70; PULSE 103; RESP 14; TEMP 97; O2SAT 98
[2023-08-25 19:43] VITALS: BP 124/79; PULSE 117; RESP 18; TEMP 98.4; O2SAT 100
[2023-08-26 07:00] VITALS: RESP 18; O2SAT 98
[2023-08-26 08:00] VITALS: BP 100/58; PULSE 92; RESP 18; TEMP 97.9; O2SAT 98
[2023-08-26 19:00] VITALS: RESP 16; O2SAT 98
[2023-08-26 20:00] VITALS: BP 121/71; PULSE 120; RESP 16; TEMP 99; O2SAT 98
[2023-08-26] MEDS: traZODone 50mg tablet PO PRN (20:33)
[2023-08-27 07:00] VITALS: BP 105/60; PULSE 102; RESP 16; TEMP 98.1; O2SAT 99
[2023-08-27 19:00] VITALS: RESP 16; O2SAT 97
[2023-08-27 20:00] VITALS: BP 100/56; PULSE 118; RESP 16; TEMP 97; O2SAT 97
[2023-08-28 07:00] VITALS: RESP 16; O2SAT 99
[2023-08-28 07:40] LABS: BASOPHILS % (AUTO) 0.3 % (0-1); EOSINOPHILS % (AUTO) 0 % (0-6); HEMATOCRIT 45.3 % (42.0-52.0); LYMPHOCYTES # (AUTO) 1.9 X10'3 (1.1-4.8); LYMPHOCYTES % (AUTO) 36.6 % (21-51); MEAN CORPUSCULAR HEMOGLOBIN 28.6 PG (27.0-31.0); MEAN CORPUSCULAR HGB CONC 33.1 g/dL (33.0-36.5); MEAN CORPUSCULAR VOLUME 86.4 FL (78-98); MEAN PLATELET VOLUME 8.3 FL (7.4-10.4); MONOCYTES # (AUTO) 0.7 X10'3 (0-0.9); MONOCYTES % (AUTO) 14.2 % (2-12); NEUTROPHILS # (AUTO) 2.6 X10'3 (1.8-7.7); NEUTROPHILS % (AUTO) 48.9 % (42-75); PLATELET COUNT 171 X10'3 (140-440); RED BLOOD COUNT 5.24 X10'6 (4.70-6.10); RED CELL DISTRIBUTION WIDTH 13.2 % (11.5-14.5); WHITE BLOOD COUNT 5.2 X10'3 (4.5-11.0)
[2023-08-28 08:00] VITALS: BP 97/53; PULSE 94; RESP 16; TEMP 97.1; O2SAT 99
[2023-08-28 19:00] VITALS: RESP 16; O2SAT 98
[2023-08-28 20:00] VITALS: BP 107/65; PULSE 115; RESP 16; TEMP 98.6; O2SAT 98
[2023-08-29 07:00] VITALS: RESP 17; O2SAT 98
[2023-08-29 08:07] VITALS: BP 103/70; PULSE 89; RESP 17; TEMP 98.3; O2SAT 98
[2023-08-29 19:00] VITALS: RESP 18; O2SAT 100
[2023-08-29 20:00] VITALS: BP 132/76; PULSE 111; RESP 18; TEMP 98.8; O2SAT 100
[2023-08-30 07:50] VITALS: RESP 18; O2SAT 98
[2023-08-30 08:30] VITALS: BP 115/83; PULSE 97; RESP 18; TEMP 98.7; O2SAT 98
[2023-08-30 19:55] VITALS: BP 127/67; PULSE 109; RESP 16; TEMP 98; O2SAT 98
[2023-08-30] MEDS: clozapine 100mg tablet PO SCH (20:25)
[2023-08-31 08:31] VITALS: BP 97/57; PULSE 98; RESP 16; TEMP 97.5; O2SAT 98
[2023-08-31 20:00] VITALS: BP 114/60; PULSE 129; RESP 18; TEMP 98.3; O2SAT 99
[2023-09-01 07:00] VITALS: RESP 16; O2SAT 95
[2023-09-01 07:16] VITALS: BP 102/60; PULSE 95; RESP 16; TEMP 97.5; O2SAT 95
[2023-09-01 19:25] VITALS: BP 123/73; PULSE 118; RESP 16; TEMP 98.1; O2SAT 98
[2023-09-02 07:00] VITALS: RESP 16; O2SAT 97
[2023-09-02 08:00] VITALS: BP 111/69; PULSE 102; RESP 16; TEMP 97.5; O2SAT 97
[2023-09-02 19:00] VITALS: RESP 16; O2SAT 99
[2023-09-02 20:00] VITALS: BP 135/84; PULSE 120; RESP 16; TEMP 98.2; O2SAT 99
[2023-09-03 07:00] VITALS: RESP 18; O2SAT 97
[2023-09-03 08:00] VITALS: BP 122/88; PULSE 98; RESP 18; TEMP 97.9; O2SAT 97
[2023-09-03 20:00] VITALS: BP 120/72; PULSE 118; RESP 16; TEMP 98; O2SAT 98
[2023-09-04 07:00] VITALS: RESP 18; O2SAT 93
[2023-09-04 08:00] VITALS: BP 109/50; PULSE 88; RESP 18; TEMP 97.5; O2SAT 93
[2023-09-04 08:50] LABS: BASOPHILS % (AUTO) 0.3 % (0-1); EOSINOPHILS % (AUTO) 0 % (0-6); HEMATOCRIT 50.6 % (42.0-52.0); HEMOGLOBIN 16.9 g/dl (14.0-17.9); LYMPHOCYTES # (AUTO) 1.7 X10'3 (1.1-4.8); LYMPHOCYTES % (AUTO) 34.1 % (21-51); MEAN CORPUSCULAR HGB CONC 33.5 g/dL (33.0-36.5); MEAN CORPUSCULAR VOLUME 86.6 FL (78-98); MEAN PLATELET VOLUME 8.8 FL (7.4-10.4); MONOCYTES # (AUTO) 0.6 X10'3 (0-0.9); MONOCYTES % (AUTO) 11.8 % (2-12); NEUTROPHILS # (AUTO) 2.7 X10'3 (1.8-7.7); NEUTROPHILS % (AUTO) 53.8 % (42-75); PLATELET COUNT 198 X10'3 (140-440); RED BLOOD COUNT 5.85 X10'6 (4.70-6.10); RED CELL DISTRIBUTION WIDTH 13.2 % (11.5-14.5)
[2023-09-04 19:00] VITALS: BP 106/72; PULSE 59; RESP 18; TEMP 97.9; O2SAT 98
[2023-09-05 07:58] VITALS: BP 103/68; PULSE 128; RESP 16; TEMP 97.7; O2SAT 99
[2023-09-05 07:59] VITALS: RESP 16; O2SAT 99
[2023-09-05 19:00] VITALS: BP 130/75; PULSE 118; RESP 18; TEMP 97.2; O2SAT 98
[2023-09-06 07:00] VITALS: RESP 16; O2SAT 99
[2023-09-06 08:00] VITALS: BP 124/79; PULSE 107; RESP 16; TEMP 97.6; O2SAT 99
[2023-09-06 19:00] VITALS: BP 135/80; PULSE 128; RESP 19; TEMP 98.1; O2SAT 100
[2023-09-07 07:00] VITALS: RESP 16; O2SAT 98
[2023-09-07 07:54] VITALS: BP 109/61; PULSE 100; RESP 16; TEMP 98.4; O2SAT 98
[2023-09-07 19:00] VITALS: RESP 17; O2SAT 99
[2023-09-07 20:00] VITALS: BP 120/75; PULSE 118; RESP 17; TEMP 97.7; O2SAT 99
[2023-09-08 07:00] VITALS: RESP 12; O2SAT 100
[2023-09-08 08:00] VITALS: BP 105/63; PULSE 68; RESP 12; TEMP 98; O2SAT 100
[2023-09-08 19:00] VITALS: RESP 15; O2SAT 97
[2023-09-08 20:00] VITALS: BP 111/66; PULSE 119; RESP 15; TEMP 97.8; O2SAT 97
[2023-09-09 07:00] VITALS: RESP 14; O2SAT 97
[2023-09-09 08:00] VITALS: BP 113/56; PULSE 111; RESP 16; TEMP 97.7; O2SAT 97
[2023-09-09 19:00] VITALS: RESP 17; O2SAT 98
[2023-09-09 20:00] VITALS: BP 144/88; PULSE 124; RESP 17; TEMP 98; O2SAT 98
[2023-09-09] MEDS ORDERED: diphenhydrAMINE 50 mg/ml inj IM ONE (20:55)
[2023-09-09] MEDS: LORazepam 2 mg/ml vial ONE (21:14)
[2023-09-09] MEDS: diphenhydrAMINE 50 mg/ml inj ONE (21:15)
[2023-09-09] MEDS: haloperidol lactate 5mg/ml inj ONE (21:15)
[2023-09-09] MEDS: diphenhydrAMINE 50 mg/ml inj IM ONE (21:16)
[2023-09-09] MEDS: LORazepam 2 mg/ml vial IM ONE (21:16)
[2023-09-09] MEDS: haloperidol lactate 5mg/ml inj IM ONE (21:16)
[2023-09-10 08:00] VITALS: BP 110/60; PULSE 99; RESP 16; TEMP 97.6; O2SAT 99
[2023-09-10 08:06] VITALS: RESP 16; O2SAT 99
[2023-09-10 19:00] VITALS: RESP 20; O2SAT 99
[2023-09-10 20:00] VITALS: TEMP 97.6
[2023-09-11 07:00] VITALS: RESP 18; O2SAT 98
[2023-09-11 07:30] VITALS: BP 117/68; PULSE 102; RESP 18; TEMP 98.7; O2SAT 98
[2023-09-11] MEDS ORDERED: propranolol 10mg tablet PO SCH ×2 (08:00)
[2023-09-11 08:41] LABS: BASOPHILS % (AUTO) 0.1 % (0-1); EOSINOPHILS % (AUTO) 0 % (0-6); HEMATOCRIT 52.7 % (42.0-52.0); HEMOGLOBIN 17.7 g/dl (14.0-17.9); LYMPHOCYTES # (AUTO) 1.7 X10'3 (1.1-4.8); LYMPHOCYTES % (AUTO) 31.4 % (21-51); MEAN CORPUSCULAR HEMOGLOBIN 28.9 PG (27.0-31.0); MEAN CORPUSCULAR HGB CONC 33.5 g/dL (33.0-36.5); MEAN CORPUSCULAR VOLUME 86.3 FL (78-98); MEAN PLATELET VOLUME 8.2 FL (7.4-10.4); MONOCYTES # (AUTO) 0.6 X10'3 (0-0.9); MONOCYTES % (AUTO) 11.9 % (2-12); NEUTROPHILS % (AUTO) 56.6 % (42-75); PLATELET COUNT 208 X10'3 (140-440); RED BLOOD COUNT 6.11 X10'6 (4.70-6.10); RED CELL DISTRIBUTION WIDTH 13.7 % (11.5-14.5); WHITE BLOOD COUNT 5.3 X10'3 (4.5-11.0)
[2023-09-11] MEDS: propranolol 10mg tablet PO SCH (08:54)
[2023-09-11 09:03] LABS: FREE T4 (FREE THYROXINE) 1.07 NG/DL (0.73-1.40); MAGNESIUM 2.3 MG/DL (1.5-2.4); PHOSPHORUS 4.9 MG/DL (2.3-4.5); THYROID STIMULATING HORMONE 2.53 ulU/ml (0.34-4.50)
[2023-09-11 19:00] VITALS: BP 132/82; PULSE 114; RESP 18; TEMP 97.6; O2SAT 99
[2023-09-12 07:46] VITALS: BP 102/62; PULSE 95; RESP 18; TEMP 97.1; O2SAT 96
[2023-09-12 08:59] VITALS: RESP 16
[2023-09-12 19:00] VITALS: BP 100/56; PULSE 110; RESP 16; TEMP 97.8; O2SAT 96
[2023-09-13 07:30] VITALS: BP 124/74; PULSE 118; RESP 16; TEMP 97.4; O2SAT 99
[2023-09-13 19:30] VITALS: BP 132/79; PULSE 108; RESP 18; TEMP 98.1; O2SAT 99
[2023-09-14 07:44] VITALS: RESP 16; O2SAT 99
[2023-09-14 08:00] VITALS: BP 107/58; PULSE 124; RESP 16; TEMP 97.8; O2SAT 99
[2023-09-14 19:00] VITALS: RESP 20; O2SAT 98
[2023-09-14 20:00] VITALS: BP 127/76; PULSE 114; RESP 20; TEMP 98.5; O2SAT 98
[2023-09-15 07:00] VITALS: RESP 16; O2SAT 99
[2023-09-15 08:00] VITALS: BP 99/51; PULSE 76; RESP 16; TEMP 97.3; O2SAT 98
[2023-09-15 10:07] VITALS: BP 99/51; PULSE 76; RESP 16; TEMP 97.3; O2SAT 98
[2023-09-15 19:00] VITALS: RESP 16; O2SAT 99
[2023-09-15 19:33] VITALS: BP 119/85; PULSE 113; RESP 16; TEMP 98.3; O2SAT 99
[2023-09-16 07:20] VITALS: RESP 16; O2SAT 99
[2023-09-16 08:00] VITALS: BP 99/51; PULSE 76; RESP 16; TEMP 97.3; O2SAT 98
[2023-09-16 19:30] VITALS: BP 103/65; PULSE 97; RESP 16; TEMP 97.8; O2SAT 99
[2023-09-17 07:00] VITALS: RESP 16; O2SAT 98
[2023-09-17 08:00] VITALS: BP 94/58; PULSE 90; RESP 16; TEMP 97.1; O2SAT 98
[2023-09-17] MEDS: LORazepam 1 MG tablet PO ONE ×2 (12:10→20:49)
[2023-09-17 19:30] VITALS: BP 98/51; PULSE 116; RESP 14; TEMP 97.4; O2SAT 97
[2023-09-17] MEDS: haloperidol 5mg tablet PO SCH (20:48)
[2023-09-18 07:00] VITALS: RESP 16; O2SAT 97
[2023-09-18 08:00] VITALS: BP 93/55; PULSE 96; RESP 16; TEMP 98.3; O2SAT 97
[2023-09-18 10:06] LABS: BASOPHILS % (AUTO) 0.2 % (0-1); EOSINOPHILS % (AUTO) 0 % (0-6); HEMATOCRIT 44.8 % (42.0-52.0); HEMOGLOBIN 15.2 g/dl (14.0-17.9); LYMPHOCYTES # (AUTO) 1.1 X10'3 (1.1-4.8); LYMPHOCYTES % (AUTO) 16.6 % (21-51); MEAN CORPUSCULAR HEMOGLOBIN 29.1 PG (27.0-31.0); MEAN CORPUSCULAR HGB CONC 34.1 g/dL (33.0-36.5); MEAN CORPUSCULAR VOLUME 85.3 FL (78-98); MEAN PLATELET VOLUME 7.9 FL (7.4-10.4); MONOCYTES # (AUTO) 0.6 X10'3 (0-0.9); MONOCYTES % (AUTO) 8.5 % (2-12); NEUTROPHILS # (AUTO) 4.9 X10'3 (1.8-7.7); NEUTROPHILS % (AUTO) 74.7 % (42-75); PLATELET COUNT 164 X10'3 (140-440); RED BLOOD COUNT 5.24 X10'6 (4.70-6.10); RED CELL DISTRIBUTION WIDTH 13.8 % (11.5-14.5); WHITE BLOOD COUNT 6.6 X10'3 (4.5-11.0)
[2023-09-18 19:00] VITALS: RESP 16; O2SAT 99
[2023-09-18 20:50] VITALS: BP 125/79; PULSE 118; RESP 16; TEMP 97.3; O2SAT 99
[2023-09-19] MEDS ORDERED: temazepam 15mg capsule PO ONE (00:30)
[2023-09-19] MEDS: traZODone 50mg tablet PO ONE (00:50)
[2023-09-19 07:30] VITALS: BP 87/63; PULSE 101; RESP 16; TEMP 97.3; O2SAT 99
[2023-09-19 19:00] VITALS: RESP 16; O2SAT 98
[2023-09-19 20:00] VITALS: BP 133/83; PULSE 112; RESP 16; TEMP 97.3; O2SAT 98
[2023-09-19] MEDS: clonazePAM 0.5mg tablet PO ONE (20:26)
[2023-09-20 07:00] VITALS: RESP 16; O2SAT 94
[2023-09-20 08:00] VITALS: BP 103/59; PULSE 62; RESP 16; TEMP 98; O2SAT 94
[2023-09-20 19:00] VITALS: RESP 18; O2SAT 98
[2023-09-20 20:23] VITALS: BP 126/75; PULSE 116; RESP 18; TEMP 98.8; O2SAT 98
[2023-09-20] MEDS: clonazePAM 0.5mg tablet PO ONE (23:43)
[2023-09-21] MEDS: clonazePAM 0.5mg tablet PO ONE ×2 (00:43→21:02)
[2023-09-21 07:00] VITALS: BP 91/50; PULSE 96; RESP 16; TEMP 98.1; O2SAT 98
[2023-09-21 19:00] VITALS: RESP 16; O2SAT 99
[2023-09-21 20:00] VITALS: BP 127/82; PULSE 108; RESP 16; TEMP 97.6; O2SAT 99
[2023-09-22 07:00] VITALS: RESP 12; O2SAT 95
[2023-09-22 07:47] VITALS: BP 120/78; PULSE 65; RESP 12; TEMP 97.9; O2SAT 95
[2023-09-22 14:35] LABS: BASOPHILS % (AUTO) 0.2 % (0-1); EOSINOPHILS % (AUTO) 0 % (0-6); HEMATOCRIT 46.8 % (42.0-52.0); HEMOGLOBIN 15.8 g/dl (14.0-17.9); LYMPHOCYTES # (AUTO) 1.1 X10'3 (1.1-4.8); LYMPHOCYTES % (AUTO) 27.8 % (21-51); MEAN CORPUSCULAR HEMOGLOBIN 28.7 PG (27.0-31.0); MEAN CORPUSCULAR HGB CONC 33.7 g/dL (33.0-36.5); MEAN PLATELET VOLUME 8.4 FL (7.4-10.4); MONOCYTES # (AUTO) 0.5 X10'3 (0-0.9); MONOCYTES % (AUTO) 12.4 % (2-12); NEUTROPHILS # (AUTO) 2.3 X10'3 (1.8-7.7); NEUTROPHILS % (AUTO) 59.6 % (42-75); PLATELET COUNT 179 X10'3 (140-440); RED BLOOD COUNT 5.51 X10'6 (4.70-6.10); RED CELL DISTRIBUTION WIDTH 13.5 % (11.5-14.5); WHITE BLOOD COUNT 3.9 X10'3 (4.5-11.0)
[2023-09-22 20:00] VITALS: BP 125/82; PULSE 118; RESP 17; TEMP 98.6; O2SAT 98
[2023-09-22] MEDS: haloperidol 5mg tablet PO ONE (21:33)
[2023-09-22] MEDS: LORazepam 1 MG tablet PO ONE (21:33)
[2023-09-23 07:00] VITALS: RESP 16; O2SAT 97
[2023-09-23 07:52] VITALS: BP 103/62; PULSE 70; RESP 16; TEMP 97.1; O2SAT 97
[2023-09-23] MEDS: LORazepam 1 MG tablet PO PRN (18:38)
[2023-09-23 19:30] VITALS: BP 132/91; PULSE 125; RESP 17; TEMP 98.3; O2SAT 99
[2023-09-24 08:00] VITALS: BP 101/53; PULSE 95; RESP 18; TEMP 98.5; O2SAT 98
[2023-09-24 19:30] VITALS: BP 133/70; PULSE 111; RESP 18; TEMP 97.6; O2SAT 97
[2023-09-25 07:30] VITALS: BP 94/49; PULSE 90; RESP 16; TEMP 97.6; O2SAT 99
[2023-09-25 09:37] LABS: BASOPHILS % (AUTO) 0.2 % (0-1); EOSINOPHILS % (AUTO) 0 % (0-6); HEMATOCRIT 48.4 % (42.0-52.0); HEMOGLOBIN 16.6 g/dl (14.0-17.9); LYMPHOCYTES # (AUTO) 1.3 X10'3 (1.1-4.8); LYMPHOCYTES % (AUTO) 21.7 % (21-51); MEAN CORPUSCULAR HEMOGLOBIN 29.2 PG (27.0-31.0); MEAN CORPUSCULAR HGB CONC 34.3 g/dL (33.0-36.5); MEAN CORPUSCULAR VOLUME 85.3 FL (78-98); MEAN PLATELET VOLUME 8.7 FL (7.4-10.4); MONOCYTES # (AUTO) 0.5 X10'3 (0-0.9); MONOCYTES % (AUTO) 9.1 % (2-12); NEUTROPHILS # (AUTO) 4.1 X10'3 (1.8-7.7); PLATELET COUNT 175 X10'3 (140-440); RED BLOOD COUNT 5.67 X10'6 (4.70-6.10); RED CELL DISTRIBUTION WIDTH 13.4 % (11.5-14.5)
[2023-09-25 19:00] VITALS: RESP 16; O2SAT 98
[2023-09-25 20:00] VITALS: BP 120/71; PULSE 116; RESP 16; TEMP 97.4; O2SAT 98
[2023-09-26 07:30] VITALS: BP 110/74; PULSE 95; RESP 16; TEMP 97; O2SAT 100
[2023-09-26 19:30] VITALS: PULSE 118; RESP 18; TEMP 97.7; O2SAT 96
[2023-09-27 07:00] VITALS: RESP 16; O2SAT 99
[2023-09-27 08:00] VITALS: BP 108/63; PULSE 102; RESP 16; TEMP 98; O2SAT 99
[2023-09-27 19:00] VITALS: RESP 16; O2SAT 97
[2023-09-27 20:00] VITALS: BP 130/81; PULSE 107; RESP 16; TEMP 97.5; O2SAT 97
[2023-09-28 07:27] VITALS: RESP 16; O2SAT 99
[2023-09-28 07:39] VITALS: PULSE 95; RESP 16; TEMP 98.1; O2SAT 98
[2023-09-28] MEDS: haloperidol 5mg tablet PO SCH (12:39)
[2023-09-28 19:49] VITALS: BP 137/92; PULSE 120; RESP 18; TEMP 98.5; O2SAT 97
[2023-09-29 07:31] VITALS: BP 123/73; PULSE 86; RESP 16; TEMP 98.3; O2SAT 99
[2023-09-29 07:34] VITALS: RESP 16; O2SAT 99
[2023-09-29 19:00] VITALS: RESP 12; O2SAT 99
[2023-09-29 20:00] VITALS: BP 136/80; PULSE 112; RESP 12; TEMP 98.2; O2SAT 99
[2023-09-30 07:18] VITALS: RESP 16; O2SAT 99
[2023-09-30 07:29] VITALS: BP 95/59; PULSE 74; RESP 12; TEMP 97.4; O2SAT 98
[2023-09-30 19:00] VITALS: BP 146/88; PULSE 125; RESP 20; TEMP 97.2; O2SAT 98
[2023-09-30 19:31] VITALS: RESP 20; O2SAT 98
[2023-10-01 07:00] VITALS: BP 106/67; PULSE 98; RESP 16; TEMP 97.8; O2SAT 98
[2023-10-01 19:00] VITALS: RESP 18; O2SAT 98
[2023-10-01 20:00] VITALS: BP 111/81; PULSE 118; RESP 18; TEMP 98.6; O2SAT 98
[2023-10-02 07:00] VITALS: RESP 14; O2SAT 96
[2023-10-02 07:47] VITALS: BP 99/58; PULSE 97; RESP 14; TEMP 97.8; O2SAT 96
[2023-10-02 09:06] LABS: BASOPHILS % (AUTO) 0.3 % (0-1); EOSINOPHILS % (AUTO) 0 % (0-6); HEMATOCRIT 47.3 % (42.0-52.0); HEMOGLOBIN 16.3 g/dl (14.0-17.9); LYMPHOCYTES # (AUTO) 1.3 X10'3 (1.1-4.8); LYMPHOCYTES % (AUTO) 26.3 % (21-51); MEAN CORPUSCULAR HGB CONC 34.4 g/dL (33.0-36.5); MEAN CORPUSCULAR VOLUME 84.4 FL (78-98); MEAN PLATELET VOLUME 8.5 FL (7.4-10.4); MONOCYTES # (AUTO) 0.6 X10'3 (0-0.9); MONOCYTES % (AUTO) 11.2 % (2-12); NEUTROPHILS # (AUTO) 3.1 X10'3 (1.8-7.7); NEUTROPHILS % (AUTO) 62.2 % (42-75); PLATELET COUNT 166 X10'3 (140-440); RED BLOOD COUNT 5.61 X10'6 (4.70-6.10); RED CELL DISTRIBUTION WIDTH 13.7 % (11.5-14.5); WHITE BLOOD COUNT 4.9 X10'3 (4.5-11.0)
[2023-10-02 19:00] VITALS: RESP 16; O2SAT 99
[2023-10-02 20:00] VITALS: BP 125/80; PULSE 118; RESP 16; TEMP 98.9; O2SAT 97
[2023-10-03 07:00] VITALS: BP 130/87; PULSE 101; RESP 18; TEMP 97.5; O2SAT 95
[2023-10-03 19:59] VITALS: BP 134/87; PULSE 109; RESP 18; TEMP 98.8; O2SAT 98
[2023-10-04 07:00] VITALS: RESP 16; O2SAT 98
[2023-10-04 07:30] VITALS: BP 98/50; PULSE 77; RESP 16; TEMP 97.5; O2SAT 98
[2023-10-04 19:00] VITALS: RESP 16; O2SAT 99
[2023-10-04 20:00] VITALS: BP 131/74; PULSE 117; RESP 16; TEMP 97.4; O2SAT 99
[2023-10-05 07:00] VITALS: RESP 16; O2SAT 99
[2023-10-05 08:00] VITALS: BP 114/75; PULSE 108; RESP 16; TEMP 98.4; O2SAT 99
[2023-10-05 19:00] VITALS: RESP 18; O2SAT 98
[2023-10-05 20:00] VITALS: BP 126/85; PULSE 107; RESP 18; TEMP 97.9; O2SAT 98
[2023-10-06 07:00] VITALS: RESP 16; O2SAT 99
[2023-10-06 07:16] VITALS: BP 104/58; PULSE 98; RESP 16; TEMP 97.1; O2SAT 99
[2023-10-06 07:23] VITALS: BP 104/58; PULSE 98; RESP 16; TEMP 97.1; O2SAT 99
[2023-10-06 19:00] VITALS: RESP 20; O2SAT 100
[2023-10-06 20:00] VITALS: BP 138/84; PULSE 122; RESP 20; TEMP 98.2; O2SAT 100
[2023-10-07 07:00] VITALS: RESP 15; O2SAT 97
[2023-10-07 08:00] VITALS: BP 112/79; PULSE 110; RESP 15; TEMP 97.6; O2SAT 97
[2023-10-07 19:00] VITALS: RESP 15; O2SAT 97
[2023-10-07 20:00] VITALS: BP 119/89; PULSE 123; RESP 18; TEMP 98.5; O2SAT 99
[2023-10-08 07:00] VITALS: RESP 18; O2SAT 98
[2023-10-08 08:00] VITALS: BP 118/83; PULSE 122; RESP 18; TEMP 97.6; O2SAT 18
[2023-10-08 19:00] VITALS: RESP 20; O2SAT 100
[2023-10-08 20:00] VITALS: BP 128/84; PULSE 114; RESP 20; TEMP 98.5; O2SAT 100
[2023-10-09 07:30] VITALS: RESP 16; O2SAT 97
[2023-10-09 07:59] VITALS: BP 109/71; PULSE 93; RESP 16; TEMP 97.9; O2SAT 97
[2023-10-09 08:12] LABS: BASOPHILS % (AUTO) 0.3 % (0-1); EOSINOPHILS % (AUTO) 0 % (0-6); HEMATOCRIT 44.8 % (42.0-52.0); HEMOGLOBIN 15.4 g/dl (14.0-17.9); LYMPHOCYTES # (AUTO) 1.7 X10'3 (1.1-4.8); LYMPHOCYTES % (AUTO) 39.3 % (21-51); MEAN CORPUSCULAR HGB CONC 34.4 g/dL (33.0-36.5); MEAN CORPUSCULAR VOLUME 84.3 FL (78-98); MEAN PLATELET VOLUME 8.4 FL (7.4-10.4); MONOCYTES # (AUTO) 0.6 X10'3 (0-0.9); MONOCYTES % (AUTO) 13.9 % (2-12); NEUTROPHILS % (AUTO) 46.5 % (42-75); PLATELET COUNT 170 X10'3 (140-440); RED BLOOD COUNT 5.32 X10'6 (4.70-6.10); RED CELL DISTRIBUTION WIDTH 13.4 % (11.5-14.5); WHITE BLOOD COUNT 4.2 X10'3 (4.5-11.0)
[2023-10-09 19:00] VITALS: RESP 18; O2SAT 99
[2023-10-09 19:08] VITALS: BP 118/93; PULSE 118; RESP 18; TEMP 98.6; O2SAT 99
[2023-10-10 07:30] VITALS: BP 96/60; PULSE 86; RESP 15; TEMP 97.9; O2SAT 98
[2023-10-10 11:24] LABS: BASOPHILS % (AUTO) 0.3 % (0-1); EOSINOPHILS % (AUTO) 0 % (0-6); HEMATOCRIT 47.5 % (42.0-52.0); HEMOGLOBIN 16.2 g/dl (14.0-17.9); LYMPHOCYTES # (AUTO) 1.5 X10'3 (1.1-4.8); LYMPHOCYTES % (AUTO) 33.1 % (21-51); MEAN CORPUSCULAR HGB CONC 34.1 g/dL (33.0-36.5); MEAN CORPUSCULAR VOLUME 85.1 FL (78-98); MEAN PLATELET VOLUME 8.5 FL (7.4-10.4); MONOCYTES # (AUTO) 0.5 X10'3 (0-0.9); MONOCYTES % (AUTO) 9.9 % (2-12); NEUTROPHILS # (AUTO) 2.6 X10'3 (1.8-7.7); NEUTROPHILS % (AUTO) 56.7 % (42-75); PLATELET COUNT 163 X10'3 (140-440); RED BLOOD COUNT 5.58 X10'6 (4.70-6.10); RED CELL DISTRIBUTION WIDTH 13.6 % (11.5-14.5); WHITE BLOOD COUNT 4.6 X10'3 (4.5-11.0)
[2023-10-10 19:00] VITALS: RESP 18; O2SAT 94
[2023-10-10 19:30] VITALS: BP 94/137; PULSE 118; RESP 18; TEMP 98.7; O2SAT 94
[2023-10-11 07:30] VITALS: BP 121/81; PULSE 110; RESP 18; TEMP 97.3; O2SAT 97
[2023-10-11 19:00] VITALS: BP 130/86; PULSE 126; RESP 18; TEMP 98.2; O2SAT 99
[2023-10-12 07:45] VITALS: RESP 16; O2SAT 98
[2023-10-12 08:00] VITALS: BP 98/70; PULSE 108; RESP 16; TEMP 98; O2SAT 98
[2023-10-12] MEDS: LORazepam 1 MG tablet PO ONE (12:14)
[2023-10-12 19:00] VITALS: RESP 16; O2SAT 99
[2023-10-12 20:00] VITALS: BP 142/80; PULSE 114; RESP 16; TEMP 97.5; O2SAT 99
[2023-10-13 07:00] VITALS: RESP 12; O2SAT 99
[2023-10-13 08:00] VITALS: BP 126/66; PULSE 103; RESP 12; TEMP 97.7; O2SAT 99
[2023-10-13 20:00] VITALS: BP 127/90; PULSE 129; RESP 17; TEMP 97.6; O2SAT 97
[2023-10-13] MEDS: temazepam 15mg capsule PO ONE (23:42)
[2023-10-14 07:00] VITALS: RESP 16; O2SAT 98
[2023-10-14 08:00] VITALS: BP 108/57; PULSE 80; RESP 16; TEMP 97.5; O2SAT 98
[2023-10-14 20:00] VITALS: BP 131/74; PULSE 110; RESP 14; TEMP 97.1; O2SAT 98; O2SAT 99
[2023-10-15 07:00] VITALS: RESP 16
[2023-10-15 08:00] VITALS: RESP 14
[2023-10-15 20:00] VITALS: BP 90/50; PULSE 81; RESP 14; TEMP 97.9
[2023-10-16 07:00] VITALS: RESP 18; O2SAT 97
[2023-10-16 08:00] VITALS: BP 122/92; PULSE 98; RESP 18; TEMP 96.9; O2SAT 97
[2023-10-16 10:36] LABS: BASOPHILS % (AUTO) 0.2 % (0-1); EOSINOPHILS % (AUTO) 0 % (0-6); HEMATOCRIT 46.6 % (42.0-52.0); HEMOGLOBIN 15.6 g/dl (14.0-17.9); LYMPHOCYTES # (AUTO) 1.2 X10'3 (1.1-4.8); LYMPHOCYTES % (AUTO) 24.5 % (21-51); MEAN CORPUSCULAR HEMOGLOBIN 28.8 PG (27.0-31.0); MEAN CORPUSCULAR HGB CONC 33.5 g/dL (33.0-36.5); MEAN CORPUSCULAR VOLUME 85.8 FL (78-98); MEAN PLATELET VOLUME 8.5 FL (7.4-10.4); MONOCYTES # (AUTO) 0.6 X10'3 (0-0.9); MONOCYTES % (AUTO) 12.8 % (2-12); NEUTROPHILS % (AUTO) 62.5 % (42-75); PLATELET COUNT 162 X10'3 (140-440); RED BLOOD COUNT 5.43 X10'6 (4.70-6.10); RED CELL DISTRIBUTION WIDTH 13.6 % (11.5-14.5); WHITE BLOOD COUNT 4.9 X10'3 (4.5-11.0)
[2023-10-16 18:57] VITALS: RESP 16; O2SAT 100
[2023-10-16 19:51] VITALS: BP 127/81; PULSE 107; RESP 16; TEMP 98.9; O2SAT 100
[2023-10-17 07:00] VITALS: RESP 14; O2SAT 98
[2023-10-17 08:00] VITALS: BP 93/49; PULSE 86; RESP 14; TEMP 97.9; O2SAT 98
[2023-10-17 19:21] VITALS: RESP 18; O2SAT 98
[2023-10-17 19:36] VITALS: BP 142/82; PULSE 113; RESP 18; TEMP 98.4; O2SAT 98
[2023-10-18 07:00] VITALS: RESP 16; O2SAT 95
[2023-10-18 08:00] VITALS: BP 102/57; PULSE 68; RESP 16; TEMP 97.8; O2SAT 95
[2023-10-18] MEDS: acetaminophen 325mg tablet PO PRN (08:30)
[2023-10-18 19:00] VITALS: RESP 18; O2SAT 99
[2023-10-18 19:32] VITALS: BP 158/87; PULSE 120; RESP 18; TEMP 98.6; O2SAT 99
[2023-10-19 07:00] VITALS: RESP 16; O2SAT 95
[2023-10-19 07:45] VITALS: BP 100/60; PULSE 90; RESP 16; TEMP 97.6; O2SAT 98
[2023-10-19 18:57] VITALS: RESP 18; O2SAT 97
[2023-10-19 19:03] VITALS: BP 134/77; PULSE 125; RESP 18; TEMP 100.2; O2SAT 97
[2023-10-19 22:29] VITALS: PULSE 114; TEMP 98.4
[2023-10-19] MEDS: temazepam 15mg capsule PO ONE (22:55)
[2023-10-20 07:30] VITALS: RESP 16; O2SAT 95
[2023-10-20 08:00] VITALS: BP 115/66; PULSE 88; RESP 16; TEMP 97.9; O2SAT 99
[2023-10-20 19:00] VITALS: RESP 15; O2SAT 96
[2023-10-20 20:00] VITALS: BP 115/66; PULSE 88; RESP 16; TEMP 99.3; O2SAT 96
[2023-10-20] MEDS ORDERED: temazepam 15mg capsule PO ONE (23:15)
[2023-10-20] MEDS: temazepam 15mg capsule PO ONE (23:42)
[2023-10-21 06:59] VITALS: BP 101/55; PULSE 83; RESP 16; TEMP 96.8; O2SAT 98
[2023-10-21 07:05] VITALS: RESP 16; O2SAT 95
[2023-10-21 08:00] VITALS: BP 101/55; PULSE 83; RESP 16; TEMP 96.8; O2SAT 98
[2023-10-21 19:00] VITALS: RESP 20; O2SAT 98
[2023-10-21 19:19] VITALS: BP 124/82; PULSE 119; RESP 20; TEMP 98.4; O2SAT 98
[2023-10-21] MEDS: temazepam 15mg capsule PO ONE (20:30)
[2023-10-22 07:26] VITALS: RESP 16; O2SAT 98
[2023-10-22 08:00] VITALS: BP 91/49; PULSE 86; RESP 16; TEMP 97.8; O2SAT 98
[2023-10-22 19:39] VITALS: BP 125/90; PULSE 127; RESP 21; TEMP 98.5; O2SAT 99
[2023-10-22] MEDS: propranolol 10mg tablet PO ONE (20:31)
[2023-10-22 21:25] VITALS: PULSE 114
[2023-10-23 07:40] VITALS: RESP 18; O2SAT 96
[2023-10-23 07:52] LABS: BASOPHILS % (AUTO) 0.1 % (0-1); EOSINOPHILS % (AUTO) 0 % (0-6); HEMATOCRIT 44.8 % (42.0-52.0); HEMOGLOBIN 15.5 g/dl (14.0-17.9); LYMPHOCYTES # (AUTO) 1.6 X10'3 (1.1-4.8); LYMPHOCYTES % (AUTO) 28.1 % (21-51); MEAN CORPUSCULAR HEMOGLOBIN 29.4 PG (27.0-31.0); MEAN CORPUSCULAR HGB CONC 34.5 g/dL (33.0-36.5); MEAN CORPUSCULAR VOLUME 85.2 FL (78-98); MEAN PLATELET VOLUME 8.3 FL (7.4-10.4); MONOCYTES # (AUTO) 0.7 X10'3 (0-0.9); NEUTROPHILS # (AUTO) 3.3 X10'3 (1.8-7.7); NEUTROPHILS % (AUTO) 59.8 % (42-75); PLATELET COUNT 163 X10'3 (140-440); RED BLOOD COUNT 5.25 X10'6 (4.70-6.10); RED CELL DISTRIBUTION WIDTH 13.8 % (11.5-14.5); WHITE BLOOD COUNT 5.5 X10'3 (4.5-11.0)
[2023-10-23 08:00] VITALS: BP 92/55; PULSE 90; RESP 14; TEMP 98.5; O2SAT 98
[2023-10-23] MEDS: nicotine 14mg patch - 24hr TD SCH (08:15)
[2023-10-23 12:37] VITALS: RESP 18; O2SAT 99
[2023-10-23 19:00] VITALS: RESP 21; O2SAT 99
[2023-10-23 19:35] VITALS: BP 136/81; PULSE 110; RESP 21; TEMP 98.5; O2SAT 99
[2023-10-23 19:46] VITALS: BP 136/81; PULSE 124; RESP 21; TEMP 98.5; O2SAT 99
[2023-10-24 07:30] VITALS: RESP 16; O2SAT 99
[2023-10-24 08:00] VITALS: BP 84/53; PULSE 86; RESP 14; TEMP 97.6; O2SAT 99
[2023-10-24] MEDS ORDERED: loperamide 2mg capsule PO PRN (13:55)
[2023-10-24] MEDS ORDERED: magnesium hydroxide 30ml (MOM) UD suspension PO PRN (13:55)
[2023-10-24] MEDS: NICOTINE POLACRILEX 2 MG LOZENGE BC PRN (17:59)
[2023-10-24 19:00] VITALS: BP 125/78; PULSE 128; RESP 20; TEMP 98.2; O2SAT 96
[2023-10-24 20:24] VITALS: BP 125/78; PULSE 110; RESP 20; TEMP 98.2; O2SAT 96
[2023-10-24] MEDS: benztropine 1mg tablet PO SCH (20:53)
[2023-10-25 07:00] VITALS: BP 89/50; PULSE 81; RESP 12; TEMP 98.4; O2SAT 97
[2023-10-25] MEDS: lamoTRIgine 100mg tablet PO SCH (07:54)
[2023-10-25] MEDS: clozapine 100mg tablet PO SCH (07:54)
[2023-10-25] MEDS ORDERED: lamoTRIgine 100mg tablet PO SCH (08:00)
[2023-10-25] MEDS ORDERED: clozapine 100mg tablet PO SCH (08:00)
[2023-10-25] MEDS ORDERED: clozapine 25mg tablet PO SCH (08:00)
[2023-10-25] MEDS: clozapine 25mg tablet PO SCH (08:15)
[2023-10-25 19:00] VITALS: BP 137/77; PULSE 125; RESP 20; TEMP 98.4; O2SAT 97
[2023-10-25] MEDS: acetaminophen 325mg tablet PO PRN (22:08)
[2023-10-26 07:00] VITALS: RESP 12; O2SAT 97
[2023-10-26 08:00] VITALS: BP 93/51; PULSE 97; RESP 18; TEMP 97; O2SAT 99
[2023-10-26 19:16] VITALS: BP 128/82; PULSE 112; RESP 14; TEMP 98.6; O2SAT 99
[2023-10-26] MEDS: acetaminophen 325mg tablet PO PRN (20:11)
[2023-10-27 07:36] VITALS: RESP 12; O2SAT 97
[2023-10-27 08:00] VITALS: BP 103/68; PULSE 106; RESP 16; TEMP 97.8; O2SAT 98
[2023-10-27 19:19] VITALS: RESP 12; O2SAT 97
[2023-10-27 19:20] VITALS: BP 132/75; PULSE 119; RESP 16; TEMP 99; O2SAT 98
[2023-10-28 07:00] VITALS: RESP 14; O2SAT 99
[2023-10-28 08:00] VITALS: BP 105/62; PULSE 95; RESP 14; TEMP 98; O2SAT 99
[2023-10-28 19:49] VITALS: BP 139/91; PULSE 116; RESP 16; TEMP 97.8; O2SAT 98
[2023-10-29 07:30] VITALS: BP 94/59; PULSE 65; RESP 12; TEMP 97.6; O2SAT 94
[2023-10-29 07:50] VITALS: RESP 16
[2023-10-29 19:52] VITALS: BP 136/95; PULSE 118; RESP 18; TEMP 98.2; O2SAT 99
[2023-10-30 07:30] VITALS: BP 95/59; PULSE 75; RESP 16; TEMP 98.9; O2SAT 98
[2023-10-30 07:50] VITALS: RESP 16; O2SAT 98
[2023-10-30 10:54] LABS: BASOPHILS % (AUTO) 0.2 % (0-1); EOSINOPHILS % (AUTO) 0 % (0-6); HEMATOCRIT 46.5 % (42.0-52.0); HEMOGLOBIN 15.6 g/dl (14.0-17.9); LYMPHOCYTES # (AUTO) 1.3 X10'3 (1.1-4.8); LYMPHOCYTES % (AUTO) 14.5 % (21-51); MEAN CORPUSCULAR HEMOGLOBIN 28.7 PG (27.0-31.0); MEAN CORPUSCULAR HGB CONC 33.6 g/dL (33.0-36.5); MEAN CORPUSCULAR VOLUME 85.2 FL (78-98); MEAN PLATELET VOLUME 7.9 FL (7.4-10.4); MONOCYTES # (AUTO) 1.1 X10'3 (0-0.9); MONOCYTES % (AUTO) 12.3 % (2-12); NEUTROPHILS # (AUTO) 6.5 X10'3 (1.8-7.7); PLATELET COUNT 167 X10'3 (140-440); RED BLOOD COUNT 5.46 X10'6 (4.70-6.10); RED CELL DISTRIBUTION WIDTH 13.8 % (11.5-14.5); WHITE BLOOD COUNT 8.9 X10'3 (4.5-11.0)
[2023-10-30] MEDS: cephalexin 250mg capsule PO SCH ×2 (15:36→20:32)
[2023-10-30 19:16] VITALS: BP 128/90; PULSE 129; RESP 18; TEMP 98.3; O2SAT 100
[2023-10-31 07:00] VITALS: RESP 16; O2SAT 98
[2023-10-31 07:06] VITALS: BP 125/75; PULSE 93; RESP 16; TEMP 97.4; O2SAT 98
[2023-10-31 19:00] VITALS: RESP 20; O2SAT 95
[2023-10-31 20:42] VITALS: BP 132/81; PULSE 119; RESP 20; TEMP 97; O2SAT 95
[2023-11-01 07:50] VITALS: RESP 18; O2SAT 99
[2023-11-01 08:30] VITALS: BP 100/66; PULSE 97; RESP 18; TEMP 97.4; O2SAT 99
[2023-11-01 19:00] VITALS: BP 101/68; PULSE 112; RESP 18; TEMP 97.9; O2SAT 97
[2023-11-02 07:00] VITALS: RESP 16; O2SAT 98
[2023-11-02 07:30] VITALS: BP 105/61; PULSE 96; RESP 16; TEMP 98; O2SAT 98
[2023-11-02 19:00] VITALS: RESP 14; O2SAT 99
[2023-11-02 20:00] VITALS: BP 132/82; PULSE 113; RESP 14; TEMP 97.7; O2SAT 99
[2023-11-03 07:00] VITALS: RESP 16; O2SAT 98
[2023-11-03 07:30] VITALS: BP 90/53; PULSE 91; RESP 16; TEMP 98.2; O2SAT 98
[2023-11-03 09:00] VITALS: BP 110/71
[2023-11-03 19:30] VITALS: BP 108/72; PULSE 101; RESP 14; TEMP 98.5; O2SAT 98
[2023-11-04 07:00] VITALS: RESP 16; O2SAT 98
[2023-11-04 08:00] VITALS: BP 120/81; PULSE 94; RESP 16; TEMP 97.3; O2SAT 98
[2023-11-04 19:30] VITALS: BP 130/86; PULSE 111; RESP 16; TEMP 98.4; O2SAT 100
[2023-11-05 07:30] VITALS: BP 103/67; PULSE 96; RESP 16; TEMP 97.4; O2SAT 98
[2023-11-05 19:00] VITALS: BP 128/77; PULSE 120; RESP 16; TEMP 96.7; O2SAT 99
[2023-11-05 21:39] VITALS: PULSE 104
[2023-11-06 07:00] VITALS: RESP 14; O2SAT 99
[2023-11-06 07:30] VITALS: BP 93/54; PULSE 93; RESP 14; TEMP 97.6; O2SAT 99
[2023-11-06 09:21] LABS: BASOPHILS % (AUTO) 0.2 % (0-1); EOSINOPHILS % (AUTO) 0 % (0-6); HEMATOCRIT 45.8 % (42.0-52.0); HEMOGLOBIN 15.7 g/dl (14.0-17.9); LYMPHOCYTES # (AUTO) 1.6 X10'3 (1.1-4.8); LYMPHOCYTES % (AUTO) 28.3 % (21-51); MEAN CORPUSCULAR HGB CONC 34.2 g/dL (33.0-36.5); MEAN CORPUSCULAR VOLUME 84.9 FL (78-98); MEAN PLATELET VOLUME 8.1 FL (7.4-10.4); MONOCYTES # (AUTO) 0.6 X10'3 (0-0.9); MONOCYTES % (AUTO) 10.7 % (2-12); NEUTROPHILS # (AUTO) 3.5 X10'3 (1.8-7.7); NEUTROPHILS % (AUTO) 60.8 % (42-75); PLATELET COUNT 172 X10'3 (140-440); RED CELL DISTRIBUTION WIDTH 13.5 % (11.5-14.5); WHITE BLOOD COUNT 5.7 X10'3 (4.5-11.0)
[2023-11-06 19:32] VITALS: BP 127/81; PULSE 109; RESP 18; TEMP 98.5; O2SAT 98
[2023-11-07 07:30] VITALS: RESP 12; O2SAT 97
[2023-11-07 08:00] VITALS: BP 102/63; PULSE 68; RESP 12; TEMP 98; O2SAT 97
[2023-11-07 19:00] VITALS: RESP 16; O2SAT 98
[2023-11-07 20:11] VITALS: BP 116/72; PULSE 110; RESP 16; TEMP 97.9; O2SAT 97
[2023-11-08] MEDS: temazepam 15mg capsule PO ONE (01:10)
[2023-11-08 07:11] VITALS: RESP 16; O2SAT 99
[2023-11-08 08:00] VITALS: BP 84/44; PULSE 88; RESP 16; TEMP 97.7; O2SAT 99
[2023-11-08 08:05] VITALS: BP 93/57
[2023-11-08 19:48] VITALS: RESP 14; O2SAT 100
[2023-11-08 20:03] VITALS: BP 124/78; PULSE 115; RESP 14; TEMP 98.1; O2SAT 100
[2023-11-09 07:00] VITALS: RESP 12; O2SAT 99
[2023-11-09 08:00] VITALS: BP 106/62; PULSE 90; RESP 12; TEMP 97.5; O2SAT 99
[2023-11-09 19:00] VITALS: RESP 15; O2SAT 98
[2023-11-09 20:00] VITALS: BP 117/73; PULSE 124; RESP 15; TEMP 97.7; O2SAT 98
[2023-11-10 07:30] VITALS: BP 105/66; PULSE 88; RESP 12; TEMP 97; O2SAT 97
[2023-11-10 19:00] VITALS: RESP 16; O2SAT 99
[2023-11-10 19:25] VITALS: BP 131/81; PULSE 121; RESP 16; TEMP 98.5; O2SAT 99
[2023-11-11 07:45] VITALS: RESP 14; O2SAT 93
[2023-11-11 08:00] VITALS: BP 109/68; PULSE 80; RESP 14; TEMP 98.4; O2SAT 93
[2023-11-11 19:00] VITALS: RESP 16; O2SAT 98
[2023-11-11 20:00] VITALS: BP 117/76; PULSE 120; RESP 16; TEMP 98; O2SAT 98
[2023-11-12 07:30] VITALS: BP 103/59; PULSE 80; RESP 14; TEMP 98.6; O2SAT 96
[2023-11-12 08:15] VITALS: RESP 14; O2SAT 96
[2023-11-12 19:00] VITALS: RESP 16; O2SAT 98
[2023-11-12 20:00] VITALS: BP 129/95; PULSE 129; RESP 16; TEMP 97.1; O2SAT 98
[2023-11-12 21:20] VITALS: PULSE 104
[2023-11-13 07:00] VITALS: BP 91/53; PULSE 96; RESP 16; TEMP 97.6; O2SAT 96
[2023-11-13 10:23] LABS: BASOPHILS % (AUTO) 0.2 % (0-1); EOSINOPHILS % (AUTO) 0 % (0-6); HEMATOCRIT 48.8 % (42.0-52.0); HEMOGLOBIN 16.7 g/dl (14.0-17.9); LYMPHOCYTES # (AUTO) 1.6 X10'3 (1.1-4.8); LYMPHOCYTES % (AUTO) 23.7 % (21-51); MEAN CORPUSCULAR HEMOGLOBIN 29.1 PG (27.0-31.0); MEAN CORPUSCULAR HGB CONC 34.2 g/dL (33.0-36.5); MEAN CORPUSCULAR VOLUME 85.1 FL (78-98); MEAN PLATELET VOLUME 8.1 FL (7.4-10.4); MONOCYTES # (AUTO) 0.6 X10'3 (0-0.9); MONOCYTES % (AUTO) 8.7 % (2-12); NEUTROPHILS # (AUTO) 4.6 X10'3 (1.8-7.7); NEUTROPHILS % (AUTO) 67.4 % (42-75); PLATELET COUNT 157 X10'3 (140-440); RED BLOOD COUNT 5.74 X10'6 (4.70-6.10); RED CELL DISTRIBUTION WIDTH 13.7 % (11.5-14.5); WHITE BLOOD COUNT 6.8 X10'3 (4.5-11.0)
[2023-11-13 19:30] VITALS: RESP 16; O2SAT 99
[2023-11-13 19:50] VITALS: BP 104/62; PULSE 114; RESP 16; TEMP 97.9; O2SAT 99
[2023-11-14 07:34] VITALS: RESP 18; O2SAT 98
[2023-11-14 08:00] VITALS: BP 89/52; PULSE 92; RESP 18; TEMP 98; O2SAT 98
[2023-11-14 19:00] VITALS: RESP 18; O2SAT 97
[2023-11-14 20:45] VITALS: BP 121/78; PULSE 110; RESP 18; TEMP 97.8; O2SAT 97
[2023-11-15 07:00] VITALS: RESP 16; O2SAT 99
[2023-11-15 08:00] VITALS: BP 89/54; PULSE 97; RESP 16; TEMP 97.7; O2SAT 99
[2023-11-15 19:00] VITALS: RESP 18; O2SAT 99
[2023-11-15 20:00] VITALS: BP 149/88; PULSE 116; RESP 18; TEMP 97.4; O2SAT 99
[2023-11-16 07:00] VITALS: RESP 16; O2SAT 99
[2023-11-16 08:00] VITALS: BP 100/56; PULSE 68; RESP 16; TEMP 97.7; O2SAT 99
[2023-11-16 19:00] VITALS: RESP 18; O2SAT 95
[2023-11-16 20:00] VITALS: BP 120/72; PULSE 66; RESP 18; TEMP 97.9; O2SAT 96
[2023-11-17 07:00] VITALS: RESP 16; O2SAT 98
[2023-11-17 08:00] VITALS: BP 110/60; PULSE 97; RESP 16; TEMP 97.1; O2SAT 98
[2023-11-17 19:00] VITALS: RESP 16; O2SAT 96
[2023-11-17 19:36] VITALS: BP 134/74; PULSE 130; RESP 16; TEMP 99.7; O2SAT 96
[2023-11-18 07:20] VITALS: RESP 18; O2SAT 97
[2023-11-18 08:32] VITALS: BP 102/52; PULSE 89; RESP 16; TEMP 97.6; O2SAT 98
[2023-11-18 19:00] VITALS: RESP 22; O2SAT 98
[2023-11-18 20:00] VITALS: BP 121/75; PULSE 111; RESP 22; TEMP 97.6; O2SAT 98
[2023-11-19 07:00] VITALS: RESP 16; O2SAT 99
[2023-11-19 08:00] VITALS: BP 98/76; PULSE 91; RESP 15; TEMP 97.6; O2SAT 99
[2023-11-19 20:31] VITALS: BP 117/74; PULSE 110; RESP 24; TEMP 97.7; O2SAT 98
[2023-11-20 07:00] VITALS: RESP 18; O2SAT 98
[2023-11-20 08:00] VITALS: BP 89/47; PULSE 86; RESP 18; TEMP 97.7; O2SAT 98
[2023-11-20 10:56] LABS: BASOPHILS % (AUTO) 0.2 % (0-1); EOSINOPHILS % (AUTO) 0 % (0-6); HEMATOCRIT 45.8 % (42.0-52.0); HEMOGLOBIN 15.6 g/dl (14.0-17.9); LYMPHOCYTES # (AUTO) 1.4 X10'3 (1.1-4.8); LYMPHOCYTES % (AUTO) 27.6 % (21-51); MEAN CORPUSCULAR HEMOGLOBIN 28.8 PG (27.0-31.0); MEAN CORPUSCULAR VOLUME 84.6 FL (78-98); MEAN PLATELET VOLUME 8.3 FL (7.4-10.4); MONOCYTES # (AUTO) 0.6 X10'3 (0-0.9); NEUTROPHILS # (AUTO) 3.1 X10'3 (1.8-7.7); NEUTROPHILS % (AUTO) 60.2 % (42-75); PLATELET COUNT 166 X10'3 (140-440); RED BLOOD COUNT 5.42 X10'6 (4.70-6.10); RED CELL DISTRIBUTION WIDTH 13.9 % (11.5-14.5); WHITE BLOOD COUNT 5.1 X10'3 (4.5-11.0)
[2023-11-20 20:00] VITALS: BP 121/74; PULSE 120; RESP 18; TEMP 98.4; O2SAT 96; O2SAT 98
[2023-11-20 20:08] VITALS: BP 121/74; PULSE 120; RESP 18; TEMP 98.4; O2SAT 96
[2023-11-21 07:00] VITALS: RESP 16; O2SAT 96
[2023-11-21 08:00] VITALS: BP 98/58; PULSE 76; RESP 18; TEMP 98.6; O2SAT 99
[2023-11-21 20:00] VITALS: BP 130/80; PULSE 125; RESP 18; TEMP 98.4; O2SAT 98
[2023-11-22 07:00] VITALS: RESP 16; O2SAT 99
[2023-11-22 08:00] VITALS: BP 136/95; PULSE 110; RESP 16; TEMP 97.9; O2SAT 99
[2023-11-22] MEDS: mag hydrox/Alum hydrox/simeth 30ml oral suspension PO PRN (08:41)
[2023-11-22 19:00] VITALS: RESP 16; O2SAT 97
[2023-11-22 20:00] VITALS: BP 131/92; PULSE 111; RESP 16; TEMP 97.9; O2SAT 97
[2023-11-22 21:10] VITALS: PULSE 108
[2023-11-23 07:00] VITALS: RESP 16; O2SAT 98
[2023-11-23 08:00] VITALS: BP 136/89; PULSE 90; RESP 17; TEMP 97.6; O2SAT 98
[2023-11-23 19:00] VITALS: RESP 18; O2SAT 98
[2023-11-23 19:31] VITALS: BP 138/81; PULSE 130; RESP 18; TEMP 99; O2SAT 98
[2023-11-24] MEDS: temazepam 15mg capsule PO ONE (01:37)
[2023-11-24 07:00] VITALS: RESP 16; O2SAT 98
[2023-11-24 08:00] VITALS: BP 93/54; PULSE 91; RESP 16; TEMP 96.6; O2SAT 99
[2023-11-24 19:00] VITALS: RESP 17; O2SAT 99
[2023-11-24 19:23] VITALS: BP 117/78; PULSE 126; RESP 17; TEMP 98.5; O2SAT 99
[2023-11-25 07:31] VITALS: RESP 16; O2SAT 98
[2023-11-25 08:00] VITALS: BP 99/65; PULSE 88; RESP 14; TEMP 97.4; O2SAT 97
[2023-11-25 19:00] VITALS: RESP 22; O2SAT 95
[2023-11-25 20:00] VITALS: BP 122/78; PULSE 119; RESP 14; TEMP 97.7; O2SAT 94
[2023-11-26 07:00] VITALS: RESP 16; O2SAT 97
[2023-11-26 08:00] VITALS: BP 89/57; PULSE 88; RESP 14; TEMP 97.4; O2SAT 97
[2023-11-26 19:17] VITALS: BP 120/77; PULSE 24; RESP 24; TEMP 98; O2SAT 94
[2023-11-26 19:19] VITALS: RESP 24; O2SAT 100
[2023-11-27 07:00] VITALS: RESP 18; O2SAT 99
[2023-11-27 08:00] VITALS: BP 101/63; PULSE 100; RESP 18; TEMP 97.6; O2SAT 99
[2023-11-27 12:03] LABS: BASOPHILS % (AUTO) 0.4 % (0-1); EOSINOPHILS % (AUTO) 0 % (0-6); HEMATOCRIT 46.4 % (42.0-52.0); HEMOGLOBIN 15.7 g/dl (14.0-17.9); LYMPHOCYTES # (AUTO) 1.5 X10'3 (1.1-4.8); MEAN CORPUSCULAR HEMOGLOBIN 28.7 PG (27.0-31.0); MEAN CORPUSCULAR HGB CONC 33.9 g/dL (33.0-36.5); MEAN CORPUSCULAR VOLUME 84.7 FL (78-98); MEAN PLATELET VOLUME 8.2 FL (7.4-10.4); MONOCYTES # (AUTO) 0.4 X10'3 (0-0.9); MONOCYTES % (AUTO) 10.4 % (2-12); NEUTROPHILS # (AUTO) 2.2 X10'3 (1.8-7.7); NEUTROPHILS % (AUTO) 52.2 % (42-75); PLATELET COUNT 154 X10'3 (140-440); RED BLOOD COUNT 5.48 X10'6 (4.70-6.10); RED CELL DISTRIBUTION WIDTH 13.9 % (11.5-14.5); WHITE BLOOD COUNT 4.2 X10'3 (4.5-11.0)
[2023-11-27 19:00] VITALS: BP 130/80; PULSE 122; RESP 16; TEMP 97.9; O2SAT 97
[2023-11-28 07:00] VITALS: RESP 16; O2SAT 98
[2023-11-28 08:00] VITALS: BP 115/64; PULSE 85; RESP 16; TEMP 98.1; O2SAT 98
[2023-11-28 19:00] VITALS: RESP 16; O2SAT 98
[2023-11-28 20:13] VITALS: BP 121/80; PULSE 112; RESP 20; TEMP 97.8; O2SAT 98
[2023-11-29 07:00] VITALS: RESP 16; O2SAT 97
[2023-11-29 08:00] VITALS: BP 97/61; PULSE 85; RESP 16; TEMP 98; O2SAT 97
[2023-11-29 19:00] VITALS: RESP 16; O2SAT 97
[2023-11-29 20:00] VITALS: BP 119/80; PULSE 99; RESP 16; TEMP 96.9; O2SAT 97
[2023-11-30 07:30] VITALS: BP 113/62; PULSE 77; RESP 15; TEMP 97.4; O2SAT 98
[2023-11-30 11:20] VITALS: RESP 15; O2SAT 98
[2023-11-30 20:00] VITALS: BP 105/72; PULSE 116; RESP 16; TEMP 98.5; O2SAT 98
[2023-12-01 07:00] VITALS: RESP 16; O2SAT 98
[2023-12-01 08:00] VITALS: BP 83/44; PULSE 83; RESP 16; TEMP 98.2; O2SAT 98
[2023-12-01 08:35] VITALS: BP 105/71; PULSE 89; RESP 16; O2SAT 97
[2023-12-01 20:00] VITALS: BP 120/83; PULSE 119; RESP 12; TEMP 97.3; O2SAT 100
[2023-12-02 07:00] VITALS: RESP 18; O2SAT 97
[2023-12-02 08:00] VITALS: BP 80/45; PULSE 83; RESP 18; TEMP 97.1; O2SAT 97
[2023-12-02 08:20] VITALS: BP 90/58
[2023-12-02 19:00] VITALS: RESP 18; O2SAT 97
[2023-12-02 20:00] VITALS: BP 135/88; PULSE 99; RESP 16; TEMP 98.7; O2SAT 97
[2023-12-03 07:00] VITALS: BP 96/68; PULSE 99; RESP 12; TEMP 97.7; O2SAT 94
[2023-12-03 19:30] VITALS: RESP 14; O2SAT 98
[2023-12-03 20:00] VITALS: BP 125/76; PULSE 118; RESP 14; TEMP 97.6; O2SAT 98
[2023-12-03 20:30] VITALS: PULSE 132; PULSE 135
[2023-12-03 22:10] VITALS: PULSE 117
[2023-12-04 07:00] VITALS: BP 110/70; PULSE 88; RESP 12; TEMP 97.4; O2SAT 96
[2023-12-04 08:43] LABS: BASOPHILS % (AUTO) 0.3 % (0-1); EOSINOPHILS % (AUTO) 0 % (0-6); HEMOGLOBIN 16.3 g/dl (14.0-17.9); LYMPHOCYTES # (AUTO) 2.2 X10'3 (1.1-4.8); LYMPHOCYTES % (AUTO) 42.4 % (21-51); MEAN CORPUSCULAR HGB CONC 34.7 g/dL (33.0-36.5); MEAN CORPUSCULAR VOLUME 83.5 FL (78-98); MEAN PLATELET VOLUME 8.2 FL (7.4-10.4); MONOCYTES # (AUTO) 0.5 X10'3 (0-0.9); MONOCYTES % (AUTO) 9.8 % (2-12); NEUTROPHILS # (AUTO) 2.4 X10'3 (1.8-7.7); NEUTROPHILS % (AUTO) 47.5 % (42-75); PLATELET COUNT 160 X10'3 (140-440); RED BLOOD COUNT 5.63 X10'6 (4.70-6.10); RED CELL DISTRIBUTION WIDTH 13.9 % (11.5-14.5); WHITE BLOOD COUNT 5.1 X10'3 (4.5-11.0)
[2023-12-04 19:34] VITALS: BP 114/78; PULSE 136; RESP 18; TEMP 98.3; O2SAT 99
[2023-12-04 20:59] VITALS: PULSE 114
[2023-12-05 07:00] VITALS: RESP 15; O2SAT 97
[2023-12-05 08:00] VITALS: BP 103/65; PULSE 89; RESP 15; TEMP 97.5; O2SAT 97
[2023-12-05 19:00] VITALS: BP 133/86; PULSE 121; RESP 18; TEMP 98.1; O2SAT 98
[2023-12-06 07:00] VITALS: BP 97/64; PULSE 88; RESP 16; TEMP 97.2; O2SAT 97
[2023-12-06 19:00] VITALS: BP 126/75; PULSE 123; RESP 16; TEMP 99.1; O2SAT 97
[2023-12-07 08:00] VITALS: BP 109/61; PULSE 102; RESP 16; TEMP 97.2; O2SAT 93
[2023-12-07 19:00] VITALS: RESP 18; O2SAT 100
[2023-12-07 20:00] VITALS: BP 126/80; PULSE 118; RESP 18; TEMP 98.7; O2SAT 100
[2023-12-08 07:00] VITALS: RESP 16; O2SAT 95
[2023-12-08 08:00] VITALS: BP 95/57; PULSE 90; RESP 16; TEMP 97.7; O2SAT 95
[2023-12-08 19:45] VITALS: BP 122/78; PULSE 107; RESP 16; TEMP 98.3; O2SAT 97
[2023-12-09 07:00] VITALS: RESP 16; O2SAT 99
[2023-12-09 07:17] VITALS: BP 96/62; PULSE 91; RESP 16; TEMP 97.9; O2SAT 99
[2023-12-09 19:17] VITALS: RESP 18; O2SAT 96
[2023-12-09 19:42] VITALS: BP 116/78; PULSE 116; RESP 18; TEMP 98.2; O2SAT 96
[2023-12-10 07:00] VITALS: RESP 18; O2SAT 97
[2023-12-10 08:29] VITALS: BP 100/58; PULSE 82; RESP 18; TEMP 97.7; O2SAT 97
[2023-12-10 19:50] VITALS: BP 114/88; PULSE 120; RESP 18; TEMP 98.1; O2SAT 97
[2023-12-10 19:51] VITALS: BP 114/80; PULSE 125; RESP 18; TEMP 98.1; O2SAT 97
[2023-12-11 07:00] VITALS: RESP 14; O2SAT 96
[2023-12-11 07:37] LABS: BASOPHILS % (AUTO) 0.2 % (0-1); EOSINOPHILS % (AUTO) 0 % (0-6); HEMATOCRIT 45.3 % (42.0-52.0); HEMOGLOBIN 15.4 g/dl (14.0-17.9); LYMPHOCYTES # (AUTO) 2.2 X10'3 (1.1-4.8); LYMPHOCYTES % (AUTO) 41.4 % (21-51); MEAN CORPUSCULAR HEMOGLOBIN 28.8 PG (27.0-31.0); MEAN CORPUSCULAR HGB CONC 34.1 g/dL (33.0-36.5); MEAN CORPUSCULAR VOLUME 84.6 FL (78-98); MEAN PLATELET VOLUME 8.4 FL (7.4-10.4); MONOCYTES # (AUTO) 0.6 X10'3 (0-0.9); MONOCYTES % (AUTO) 11.7 % (2-12); NEUTROPHILS # (AUTO) 2.5 X10'3 (1.8-7.7); NEUTROPHILS % (AUTO) 46.7 % (42-75); PLATELET COUNT 163 X10'3 (140-440); RED BLOOD COUNT 5.35 X10'6 (4.70-6.10); RED CELL DISTRIBUTION WIDTH 13.7 % (11.5-14.5); WHITE BLOOD COUNT 5.4 X10'3 (4.5-11.0)
[2023-12-11 08:00] VITALS: BP 98/57; PULSE 92; RESP 14; TEMP 98.9; O2SAT 96
[2023-12-11 19:18] VITALS: BP 136/85; PULSE 123; RESP 22; TEMP 97.8; O2SAT 100
[2023-12-11 21:52] VITALS: PULSE 112
[2023-12-12 07:00] VITALS: RESP 15; O2SAT 96
[2023-12-12 08:00] VITALS: BP 101/66; PULSE 95; RESP 15; TEMP 97.9; O2SAT 96
[2023-12-12 19:00] VITALS: RESP 16; O2SAT 96
[2023-12-12 19:05] VITALS: BP 134/82; PULSE 112; RESP 16; TEMP 98.6; O2SAT 96
[2023-12-13 07:00] VITALS: RESP 16; O2SAT 98
[2023-12-13 08:00] VITALS: BP 92/54; PULSE 71; RESP 16; TEMP 97.6; O2SAT 98
[2023-12-13 19:00] VITALS: RESP 16; O2SAT 99
[2023-12-13 20:00] VITALS: BP 138/88; PULSE 105; RESP 16; TEMP 98.4; O2SAT 99
[2023-12-14 07:05] VITALS: RESP 16; O2SAT 98
[2023-12-14 08:00] VITALS: BP 92/55; PULSE 76; RESP 14; TEMP 97.4; O2SAT 100
[2023-12-14 19:00] VITALS: RESP 16; O2SAT 98
[2023-12-14 20:00] VITALS: BP 109/76; PULSE 113; RESP 16; TEMP 98.5; O2SAT 98
[2023-12-15 07:29] VITALS: RESP 16; O2SAT 98
[2023-12-15 08:00] VITALS: BP 103/59; PULSE 101; RESP 16; TEMP 97.8; O2SAT 97
[2023-12-15 19:00] VITALS: RESP 17; O2SAT 99
[2023-12-15 19:16] VITALS: BP 139/89; PULSE 124; RESP 17; TEMP 99.1; O2SAT 99
[2023-12-16 07:00] VITALS: RESP 16; O2SAT 98
[2023-12-16 08:46] VITALS: BP 90/48; PULSE 84; RESP 16; TEMP 97.4; O2SAT 97
[2023-12-16 19:00] VITALS: RESP 20; O2SAT 96
[2023-12-16 19:13] VITALS: BP 129/85; PULSE 118; RESP 20; TEMP 98.4; O2SAT 96
[2023-12-17 07:00] VITALS: RESP 18; O2SAT 96
[2023-12-17 07:25] VITALS: BP 83/57; PULSE 83; RESP 18; TEMP 96.8; O2SAT 96
[2023-12-17 19:04] VITALS: BP 118/76; PULSE 118; RESP 14; TEMP 98.4; O2SAT 98
[2023-12-17 21:08] VITALS: PULSE 106
[2023-12-18 07:00] VITALS: RESP 16; O2SAT 95
[2023-12-18 08:00] VITALS: BP_SYST 107; BP_SYST 96; BP_DIAS 57; BP_DIAS 63; PULSE 84; PULSE 90; RESP 16; TEMP 97.8; TEMP 98; O2SAT 95; O2SAT 99
[2023-12-18 10:08] LABS: BASOPHILS % (AUTO) 0.2 % (0-1); EOSINOPHILS % (AUTO) 0 % (0-6); HEMATOCRIT 46.3 % (42.0-52.0); HEMOGLOBIN 15.7 g/dl (14.0-17.9); LYMPHOCYTES # (AUTO) 1.6 X10'3 (1.1-4.8); LYMPHOCYTES % (AUTO) 30.5 % (21-51); MEAN CORPUSCULAR HEMOGLOBIN 28.8 PG (27.0-31.0); MEAN CORPUSCULAR HGB CONC 33.9 g/dL (33.0-36.5); MEAN CORPUSCULAR VOLUME 84.9 FL (78-98); MEAN PLATELET VOLUME 8.4 FL (7.4-10.4); MONOCYTES # (AUTO) 0.6 X10'3 (0-0.9); MONOCYTES % (AUTO) 12.1 % (2-12); NEUTROPHILS % (AUTO) 57.2 % (42-75); PLATELET COUNT 143 X10'3 (140-440); RED BLOOD COUNT 5.45 X10'6 (4.70-6.10); RED CELL DISTRIBUTION WIDTH 13.8 % (11.5-14.5); WHITE BLOOD COUNT 5.3 X10'3 (4.5-11.0)
[2023-12-18 19:59] VITALS: BP 136/70; PULSE 122; RESP 16; TEMP 98.1; O2SAT 99
[2023-12-18 20:00] VITALS: RESP 16; O2SAT 99
[2023-12-19 07:00] VITALS: RESP 14; O2SAT 94
[2023-12-19 08:00] VITALS: BP 96/62; PULSE 79; RESP 14; TEMP 98.2; O2SAT 94
[2023-12-19 19:22] VITALS: BP 102/61; PULSE 114; RESP 16; TEMP 98.8; O2SAT 98
[2023-12-19 19:40] VITALS: RESP 16; O2SAT 98
[2023-12-20 07:00] VITALS: RESP 15; O2SAT 98
[2023-12-20 07:30] VITALS: BP 93/60; PULSE 83; RESP 15; TEMP 97.9; O2SAT 98
[2023-12-20 19:30] VITALS: BP 132/74; PULSE 123; RESP 17; TEMP 98.1; O2SAT 17
[2023-12-20 19:47] VITALS: RESP 17; O2SAT 96
[2023-12-21 07:00] VITALS: RESP 14; O2SAT 98
[2023-12-21 07:30] VITALS: BP 98/58; PULSE 90; RESP 14; TEMP 98; O2SAT 98
[2023-12-21 19:18] VITALS: BP 124/67; PULSE 127; RESP 18; TEMP 98.7; O2SAT 98
[2023-12-21 19:49] VITALS: RESP 18; O2SAT 98
[2023-12-21 21:19] VITALS: PULSE 121
[2023-12-22 06:47] VITALS: RESP 14; O2SAT 98
[2023-12-22 06:56] VITALS: BP 96/60; PULSE 83; RESP 16; TEMP 98.1; O2SAT 97
[2023-12-22 07:14] VITALS: BP 96/60; PULSE 83; RESP 16; TEMP 98.1; O2SAT 97
[2023-12-22 19:00] VITALS: RESP 16; O2SAT 99
[2023-12-22 19:06] VITALS: BP 134/75; PULSE 122; RESP 16; TEMP 99.1; O2SAT 99
[2023-12-23 06:48] VITALS: RESP 14; O2SAT 98
[2023-12-23 07:15] VITALS: BP 88/52; PULSE 85; RESP 16; TEMP 97.6; O2SAT 100
[2023-12-23 19:20] VITALS: RESP 16; O2SAT 97
[2023-12-23 19:23] VITALS: BP 149/93; PULSE 109; RESP 16; TEMP 98; O2SAT 97
[2023-12-24 08:00] VITALS: BP 91/52; PULSE 88; RESP 14; TEMP 97.5; O2SAT 95
[2023-12-24 19:00] VITALS: BP 116/80; PULSE 80; RESP 18; TEMP 97.5; O2SAT 100
[2023-12-25 07:30] VITALS: BP 100/62; PULSE 87; RESP 14; TEMP 97.6; O2SAT 98
[2023-12-25 11:44] LABS: BASOPHILS % (AUTO) 0.3 % (0-1); EOSINOPHILS % (AUTO) 0 % (0-6); HEMATOCRIT 43.4 % (42.0-52.0); HEMOGLOBIN 15.2 g/dl (14.0-17.9); LYMPHOCYTES # (AUTO) 1.6 X10'3 (1.1-4.8); LYMPHOCYTES % (AUTO) 29.4 % (21-51); MEAN CORPUSCULAR HEMOGLOBIN 29.6 PG (27.0-31.0); MEAN CORPUSCULAR VOLUME 84.5 FL (78-98); MEAN PLATELET VOLUME 8.4 FL (7.4-10.4); MONOCYTES # (AUTO) 0.6 X10'3 (0-0.9); MONOCYTES % (AUTO) 11.5 % (2-12); NEUTROPHILS # (AUTO) 3.2 X10'3 (1.8-7.7); NEUTROPHILS % (AUTO) 58.8 % (42-75); PLATELET COUNT 151 X10'3 (140-440); RED BLOOD COUNT 5.14 X10'6 (4.70-6.10); RED CELL DISTRIBUTION WIDTH 13.6 % (11.5-14.5); WHITE BLOOD COUNT 5.4 X10'3 (4.5-11.0)
[2023-12-25 19:00] VITALS: RESP 16; O2SAT 98
[2023-12-25 20:15] VITALS: BP 134/92; PULSE 122; RESP 16; TEMP 97.3; O2SAT 98
[2023-12-26 07:30] VITALS: BP 123/69; PULSE 89; RESP 16; TEMP 97.1; O2SAT 97
[2023-12-26 19:00] VITALS: RESP 16; O2SAT 97
[2023-12-26 19:36] VITALS: BP 128/76; PULSE 114; RESP 16; TEMP 98.2; O2SAT 97
[2023-12-27 07:30] VITALS: BP 96/60; PULSE 85; RESP 18; TEMP 98.4; O2SAT 98
[2023-12-27 19:00] VITALS: RESP 16; O2SAT 96
[2023-12-27 20:08] VITALS: BP 136/83; PULSE 134; RESP 16; TEMP 98.1; O2SAT 96
[2023-12-28 07:00] VITALS: RESP 17; O2SAT 94
[2023-12-28 07:06] VITALS: BP 93/52; PULSE 93; RESP 17; TEMP 97.6; O2SAT 94
[2023-12-28 19:00] VITALS: RESP 14; O2SAT 99
[2023-12-28 20:00] VITALS: BP 130/78; PULSE 111; RESP 14; TEMP 97.8; O2SAT 99
[2023-12-29 07:27] VITALS: RESP 17; O2SAT 94
[2023-12-29 08:00] VITALS: BP 84/46; PULSE 85; RESP 16; TEMP 97.9; O2SAT 96
[2023-12-29 19:00] VITALS: BP 127/81; PULSE 127; RESP 16; RESP 19; TEMP 98.3; O2SAT 97
[2023-12-30 08:00] VITALS: BP 91/49
[2023-12-30 08:20] VITALS: BP 100/68; PULSE 86; RESP 12; TEMP 97.3; O2SAT 97
[2023-12-30 19:00] VITALS: BP 131/88; PULSE 137; RESP 18; TEMP 98.5; O2SAT 97
[2023-12-30 19:26] VITALS: RESP 18; O2SAT 97
[2023-12-30 21:29] VITALS: PULSE 108
[2023-12-31 07:00] VITALS: RESP 16; O2SAT 97
[2023-12-31 07:18] VITALS: BP 90/52; PULSE 84; RESP 16; TEMP 98; O2SAT 97
[2023-12-31 19:00] VITALS: RESP 18; O2SAT 96
[2023-12-31 19:29] VITALS: BP 113/65; PULSE 121; RESP 18; TEMP 98.2; O2SAT 96
[2024-01-01 07:12] LABS: BASOPHILS % (AUTO) 0.2 % (0-1); EOSINOPHILS % (AUTO) 0 % (0-6); HEMATOCRIT 44.9 % (42.0-52.0); HEMOGLOBIN 15.2 g/dl (14.0-17.9); LYMPHOCYTES # (AUTO) 2.4 X10'3 (1.1-4.8); LYMPHOCYTES % (AUTO) 41.6 % (21-51); MEAN CORPUSCULAR HEMOGLOBIN 28.8 PG (27.0-31.0); MEAN CORPUSCULAR HGB CONC 33.9 g/dL (33.0-36.5); MEAN CORPUSCULAR VOLUME 84.9 FL (78-98); MEAN PLATELET VOLUME 8.2 FL (7.4-10.4); MONOCYTES # (AUTO) 0.7 X10'3 (0-0.9); MONOCYTES % (AUTO) 11.7 % (2-12); NEUTROPHILS # (AUTO) 2.7 X10'3 (1.8-7.7); NEUTROPHILS % (AUTO) 46.5 % (42-75); PLATELET COUNT 169 X10'3 (140-440); RED BLOOD COUNT 5.28 X10'6 (4.70-6.10); RED CELL DISTRIBUTION WIDTH 14.2 % (11.5-14.5); WHITE BLOOD COUNT 5.8 X10'3 (4.5-11.0)
[2024-01-01 07:49] VITALS: BP 96/54; PULSE 83; RESP 19; TEMP 97.3; O2SAT 97
[2024-01-01 18:57] VITALS: BP 116/78; PULSE 114; RESP 16; TEMP 98.4; O2SAT 97
[2024-01-01 19:00] VITALS: RESP 16; O2SAT 97
[2024-01-01 19:02] VITALS: BP 116/78; PULSE 114; RESP 16; TEMP 98.4; O2SAT 97
[2024-01-02 07:00] VITALS: RESP 12; O2SAT 97
[2024-01-02 08:00] VITALS: BP 100/61; PULSE 88; RESP 12; TEMP 97.1; O2SAT 97
[2024-01-02 19:20] VITALS: BP 136/86; PULSE 120; RESP 18; TEMP 97.8; O2SAT 98
[2024-01-03 07:00] VITALS: RESP 16; O2SAT 100
[2024-01-03 08:00] VITALS: BP 103/67; PULSE 84; RESP 16; TEMP 97.8; O2SAT 100
[2024-01-03 19:00] VITALS: BP 122/78; PULSE 117; RESP 18; TEMP 98.3; O2SAT 97
[2024-01-03 19:20] VITALS: RESP 15; O2SAT 97
[2024-01-03 19:23] VITALS: BP 122/78; PULSE 117; RESP 18; TEMP 98.3; O2SAT 97
[2024-01-04 07:00] VITALS: RESP 15; O2SAT 96
[2024-01-04 07:30] VITALS: BP 111/65; PULSE 88; RESP 15; TEMP 98.1; O2SAT 96
[2024-01-04 19:00] VITALS: RESP 17; O2SAT 98
[2024-01-04 20:00] VITALS: BP 122/77; PULSE 125; RESP 17; TEMP 97.9; O2SAT 98
[2024-01-05 07:00] VITALS: RESP 15; O2SAT 97
[2024-01-05 07:30] VITALS: BP 101/55; PULSE 90; RESP 15; TEMP 97.9; O2SAT 97
[2024-01-05 19:00] VITALS: RESP 22; O2SAT 96
[2024-01-05 20:00] VITALS: BP 121/81; PULSE 111; RESP 22; TEMP 97.8; O2SAT 96
[2024-01-06 06:55] VITALS: RESP 15; O2SAT 97
[2024-01-06 08:31] VITALS: BP 81/45; PULSE 88; RESP 18; TEMP 97.9; O2SAT 97
[2024-01-06 19:00] VITALS: BP 130/75; PULSE 114; RESP 16; TEMP 97.8; O2SAT 98
[2024-01-07 07:00] VITALS: RESP 18; O2SAT 95
[2024-01-07 08:00] VITALS: BP 106/65; PULSE 89; RESP 18; TEMP 98.9; O2SAT 95
[2024-01-07 19:00] VITALS: RESP 16; O2SAT 97
[2024-01-07 19:29] VITALS: BP 115/72; PULSE 120; RESP 16; TEMP 98.1; O2SAT 97
[2024-01-08 07:30] VITALS: BP 94/56; PULSE 87; RESP 16; TEMP 97.8; O2SAT 100
[2024-01-08 08:57] LABS: BASOPHILS % (AUTO) 0.2 % (0-1); EOSINOPHILS % (AUTO) 0 % (0-6); HEMATOCRIT 44.4 % (42.0-52.0); HEMOGLOBIN 15.1 g/dl (14.0-17.9); LYMPHOCYTES # (AUTO) 2.2 X10'3 (1.1-4.8); LYMPHOCYTES % (AUTO) 29.6 % (21-51); MEAN CORPUSCULAR HEMOGLOBIN 28.9 PG (27.0-31.0); MEAN CORPUSCULAR HGB CONC 33.9 g/dL (33.0-36.5); MEAN CORPUSCULAR VOLUME 85.2 FL (78-98); MEAN PLATELET VOLUME 8.4 FL (7.4-10.4); MONOCYTES # (AUTO) 0.8 X10'3 (0-0.9); MONOCYTES % (AUTO) 10.3 % (2-12); NEUTROPHILS # (AUTO) 4.4 X10'3 (1.8-7.7); NEUTROPHILS % (AUTO) 59.9 % (42-75); PLATELET COUNT 169 X10'3 (140-440); RED BLOOD COUNT 5.22 X10'6 (4.70-6.10); RED CELL DISTRIBUTION WIDTH 13.8 % (11.5-14.5); WHITE BLOOD COUNT 7.3 X10'3 (4.5-11.0)
[2024-01-08 19:36] VITALS: BP 126/75; PULSE 121; RESP 12; TEMP 98.6; O2SAT 97
[2024-01-09 07:00] VITALS: RESP 14; O2SAT 95
[2024-01-09 08:00] VITALS: BP 85/50; PULSE 83; RESP 14; TEMP 97.3; O2SAT 95
[2024-01-09 19:00] VITALS: RESP 18; O2SAT 97
[2024-01-09 20:59] VITALS: BP 133/75; PULSE 116; RESP 18; TEMP 98.9; O2SAT 97
[2024-01-10 07:30] VITALS: BP 110/65; PULSE 85; RESP 12; TEMP 98; O2SAT 100
[2024-01-10 19:00] VITALS: RESP 16; O2SAT 96
[2024-01-10 20:00] VITALS: BP 102/72; PULSE 116; RESP 16; TEMP 98.4; O2SAT 96
[2024-01-11] MEDS: temazepam 15mg capsule PO ONE (00:58)
[2024-01-11 07:48] VITALS: RESP 12; O2SAT 100
[2024-01-11 08:46] VITALS: BP 131/65; PULSE 81; RESP 20; TEMP 98.2; O2SAT 98
[2024-01-11 19:00] VITALS: RESP 16; O2SAT 97
[2024-01-11 20:00] VITALS: BP 120/72; PULSE 116; RESP 16; TEMP 98.9; O2SAT 97
[2024-01-12 07:22] VITALS: RESP 12; O2SAT 100
[2024-01-12 08:59] VITALS: BP 95/52; PULSE 85; RESP 16; TEMP 96.9; O2SAT 98
[2024-01-12] MEDS: ringers solution, lacted 1,000 ML IV ONE (12:55)
[2024-01-12 19:00] VITALS: RESP 22; O2SAT 97
[2024-01-12 19:10] VITALS: BP 129/88; PULSE 111; RESP 22; TEMP 98.1; O2SAT 97
[2024-01-13 07:00] VITALS: RESP 12; O2SAT 100
[2024-01-13 08:00] VITALS: BP 92/52; PULSE 90; RESP 14; TEMP 98; O2SAT 98
[2024-01-13 19:00] VITALS: BP 124/74; PULSE 116; RESP 15; TEMP 98.9; O2SAT 97
[2024-01-13] MEDS: temazepam 15mg capsule PO ONE (23:43)
[2024-01-14 07:00] VITALS: RESP 16; O2SAT 98
[2024-01-14 08:00] VITALS: BP 106/60; PULSE 98; RESP 16; TEMP 98.6; O2SAT 98
[2024-01-14 19:54] VITALS: BP 102/55; PULSE 113; RESP 18; TEMP 98.8; O2SAT 97
[2024-01-15 07:00] VITALS: RESP 14; O2SAT 97
[2024-01-15 08:00] VITALS: BP 88/53; PULSE 90; RESP 14; TEMP 98.2; O2SAT 97
[2024-01-15 08:30] LABS: BASOPHILS % (AUTO) 0.3 % (0-1); EOSINOPHILS % (AUTO) 0 % (0-6); HEMATOCRIT 45.1 % (42.0-52.0); HEMOGLOBIN 15.3 g/dl (14.0-17.9); LYMPHOCYTES % (AUTO) 37.1 % (21-51); MEAN CORPUSCULAR HEMOGLOBIN 29.1 PG (27.0-31.0); MEAN CORPUSCULAR VOLUME 85.5 FL (78-98); MEAN PLATELET VOLUME 8.1 FL (7.4-10.4); MONOCYTES # (AUTO) 0.6 X10'3 (0-0.9); MONOCYTES % (AUTO) 10.4 % (2-12); NEUTROPHILS # (AUTO) 2.7 X10'3 (1.8-7.7); NEUTROPHILS % (AUTO) 52.2 % (42-75); PLATELET COUNT 164 X10'3 (140-440); RED BLOOD COUNT 5.27 X10'6 (4.70-6.10); RED CELL DISTRIBUTION WIDTH 13.5 % (11.5-14.5); WHITE BLOOD COUNT 5.3 X10'3 (4.5-11.0)
[2024-01-15 08:41] VITALS: BP 113/71
[2024-01-15 10:51] LABS: BILIRUBIN,URINE NEGATIVE (Neg); CLARITY,URINE CLEAR (Clear); COLOR,URINE YELLOW (Yellow); GLUCOSE, URINE NEGATIVE (Neg); KETONES,URINE NEGATIVE (Neg); LEUKOCYTE ESTERASE ,URINE NEGATIVE (Neg); NITRITES, URINE NEGATIVE (Neg); OCCULT BLOOD,URINE NEGATIVE (Neg); PROTEIN,URINE TRACE mg/dl (Neg); UROBILINOGEN,URINE 0.2 E.U/dL (0.2-1.0)
[2024-01-15 10:54] LABS: UA COLLECTION TYPE VOIDED
[2024-01-15 11:01] LABS: BACTERIA,URINE NONE SEEN /HPF (Neg); MUCUS STRANDS NONE SEEN /LPF (Neg); RBC,URINE NONE SEEN /HPF (0-2); SQUAMOUS EPITHELIAL CELL,UR FEW /LPF (FEW); WBC,URINE 0-4 /HPF (0-4)
[2024-01-15 19:00] VITALS: RESP 16; O2SAT 96
[2024-01-15 20:00] VITALS: BP 122/75; PULSE 122; RESP 16; TEMP 98.8; O2SAT 97
[2024-01-16 07:00] VITALS: RESP 14; O2SAT 94
[2024-01-16 07:30] VITALS: BP 94/55; PULSE 91; RESP 14; TEMP 97.8; O2SAT 94
[2024-01-16 19:00] VITALS: BP 94/55; PULSE 91; RESP 14; RESP 16; TEMP 97.8; O2SAT 94; O2SAT 95
[2024-01-17 07:44] VITALS: RESP 16; O2SAT 94
[2024-01-17 08:28] VITALS: BP 99/67; PULSE 93; RESP 16; TEMP 98.1; O2SAT 94
[2024-01-17 19:00] VITALS: RESP 20; O2SAT 96
[2024-01-17 19:11] VITALS: BP 130/80; PULSE 118; RESP 20; TEMP 98.4; O2SAT 96
[2024-01-18 07:30] VITALS: BP 83/50; PULSE 84; RESP 16; TEMP 97.3; O2SAT 97
[2024-01-18 11:00] VITALS: BP 121/75; PULSE 113
[2024-01-18 19:00] VITALS: RESP 22; O2SAT 98
[2024-01-18 19:02] VITALS: BP 125/88; PULSE 124; RESP 22; TEMP 98.1; O2SAT 98
[2024-01-19 07:00] VITALS: RESP 16; O2SAT 98
[2024-01-19 07:30] VITALS: BP 97/55; PULSE 84; RESP 16; TEMP 97.6; O2SAT 98
[2024-01-19 19:00] VITALS: RESP 24; O2SAT 100
[2024-01-19 19:13] VITALS: BP 120/73; PULSE 124; RESP 20; TEMP 98.7; O2SAT 100
[2024-01-20 07:30] VITALS: BP 87/50; PULSE 88; RESP 18; TEMP 97.7; O2SAT 96
[2024-01-20 19:00] VITALS: RESP 16; O2SAT 94
[2024-01-20 20:00] VITALS: BP 124/74; PULSE 119; RESP 16; TEMP 97.8; O2SAT 94
[2024-01-21 07:00] VITALS: RESP 18; O2SAT 96
[2024-01-21 08:00] VITALS: BP 92/56; PULSE 80; RESP 18; TEMP 98.4; O2SAT 96
[2024-01-21 19:30] VITALS: RESP 18; O2SAT 97
[2024-01-21 20:34] VITALS: BP 131/73; PULSE 119; RESP 18; TEMP 98.4; O2SAT 97
[2024-01-22 07:00] VITALS: RESP 18; O2SAT 99
[2024-01-22 08:00] VITALS: BP 91/55; PULSE 86; RESP 18; TEMP 98.6; O2SAT 99
[2024-01-22 09:28] LABS: BASOPHILS % (AUTO) 0.3 % (0-1); EOSINOPHILS % (AUTO) 0 % (0-6); HEMATOCRIT 45.4 % (42.0-52.0); HEMOGLOBIN 15.9 g/dl (14.0-17.9); LYMPHOCYTES % (AUTO) 37.3 % (21-51); MEAN CORPUSCULAR HEMOGLOBIN 29.9 PG (27.0-31.0); MEAN CORPUSCULAR VOLUME 85.4 FL (78-98); MEAN PLATELET VOLUME 8.2 FL (7.4-10.4); MONOCYTES # (AUTO) 0.6 X10'3 (0-0.9); MONOCYTES % (AUTO) 11.1 % (2-12); NEUTROPHILS # (AUTO) 2.8 X10'3 (1.8-7.7); NEUTROPHILS % (AUTO) 51.3 % (42-75); PLATELET COUNT 162 X10'3 (140-440); RED BLOOD COUNT 5.32 X10'6 (4.70-6.10); RED CELL DISTRIBUTION WIDTH 13.6 % (11.5-14.5); WHITE BLOOD COUNT 5.4 X10'3 (4.5-11.0)
[2024-01-22 19:30] VITALS: RESP 18; O2SAT 97
[2024-01-22 19:33] VITALS: BP 134/79; PULSE 119; RESP 18; TEMP 98.3; O2SAT 97
[2024-01-23 07:00] VITALS: RESP 16; O2SAT 99
[2024-01-23 08:00] VITALS: BP 97/64; PULSE 87; RESP 16; TEMP 98.2; O2SAT 99
[2024-01-23 19:00] VITALS: RESP 16; O2SAT 96
[2024-01-23 19:33] VITALS: BP 101/62; PULSE 79; RESP 16; TEMP 98.3; O2SAT 96
[2024-01-24 07:30] VITALS: BP 108/62; PULSE 94; RESP 12; TEMP 97.8; O2SAT 99
[2024-01-24 19:00] VITALS: RESP 18; O2SAT 98
[2024-01-24 19:46] VITALS: BP 124/79; PULSE 119; RESP 18; TEMP 99.3; O2SAT 98
[2024-01-25 07:30] VITALS: BP 90/63; PULSE 70; RESP 14; TEMP 98.2; O2SAT 95
[2024-01-25 19:00] VITALS: RESP 22; O2SAT 97
[2024-01-25 19:10] VITALS: BP 111/69; PULSE 124; RESP 22; TEMP 97.2; O2SAT 97
[2024-01-26 07:27] VITALS: BP 102/63; PULSE 96; RESP 16; TEMP 98; O2SAT 97
[2024-01-26] MEDS: tuberculin, purif. prot. deriv. 5 units/0.1ml ID ONE (17:16)
[2024-01-26 19:43] VITALS: BP 128/78; PULSE 95; RESP 16; TEMP 97.5; O2SAT 98
[2024-01-26 19:50] VITALS: BP 121/76; PULSE 114; RESP 16; TEMP 99.3; O2SAT 96
[2024-01-26 19:55] VITALS: RESP 16; O2SAT 96
[2024-01-26] MEDS: temazepam 15mg capsule PO ONE (22:31)
[2024-01-27 07:19] VITALS: BP 90/50; PULSE 55; RESP 12; TEMP 97.7; O2SAT 100
[2024-01-27 19:00] VITALS: RESP 18; O2SAT 100
[2024-01-27 19:19] VITALS: BP 129/74; PULSE 109; RESP 18; TEMP 98; O2SAT 100
[2024-01-28 07:10] VITALS: BP 94/58; PULSE 89; RESP 18; TEMP 97.9; O2SAT 97
[2024-01-28 19:00] VITALS: RESP 18; O2SAT 100
[2024-01-28 19:19] VITALS: BP 134/72; PULSE 116; RESP 18; TEMP 98.8; O2SAT 100
[2024-01-29 07:24] VITALS: BP 92/47; PULSE 88; RESP 16; TEMP 97; O2SAT 95
[2024-01-29 08:46] LABS: BASOPHILS % (AUTO) 0.3 % (0-1); EOSINOPHILS % (AUTO) 0 % (0-6); HEMATOCRIT 44.7 % (42.0-52.0); HEMOGLOBIN 15.4 g/dl (14.0-17.9); LYMPHOCYTES # (AUTO) 2.3 X10'3 (1.1-4.8); LYMPHOCYTES % (AUTO) 41.5 % (21-51); MEAN CORPUSCULAR HEMOGLOBIN 29.5 PG (27.0-31.0); MEAN CORPUSCULAR HGB CONC 34.3 g/dL (33.0-36.5); MEAN CORPUSCULAR VOLUME 85.9 FL (78-98); MEAN PLATELET VOLUME 8.5 FL (7.4-10.4); MONOCYTES # (AUTO) 0.6 X10'3 (0-0.9); MONOCYTES % (AUTO) 10.5 % (2-12); NEUTROPHILS # (AUTO) 2.6 X10'3 (1.8-7.7); NEUTROPHILS % (AUTO) 47.7 % (42-75); PLATELET COUNT 155 X10'3 (140-440); RED BLOOD COUNT 5.21 X10'6 (4.70-6.10); RED CELL DISTRIBUTION WIDTH 13.5 % (11.5-14.5); WHITE BLOOD COUNT 5.5 X10'3 (4.5-11.0)
[2024-01-29 19:00] VITALS: BP 115/73; PULSE 114; RESP 16; TEMP 98.9; O2SAT 97
[2024-01-30 08:16] VITALS: BP 90/50; PULSE 83; RESP 16; TEMP 97.5; O2SAT 97
[2024-01-30] MEDS ORDERED: tuberculin, purif. prot. deriv. 5 units/0.1ml ID PRN (09:55)
[2024-01-30] MEDS ORDERED: LAMO100T PO (17:43)
[2024-01-30] MEDS ORDERED: NICO-907 BC (17:43)
[2024-01-30] MEDS ORDERED: NICO-631 TD (17:43)
[2024-01-30] MEDS ORDERED: TRAZ-256 PO (17:43)
[2024-01-30] MEDS ORDERED: ATI1T PO (17:43)
[2024-01-30] MEDS ORDERED: BENZ1TAB78 PO (17:43)
[2024-01-30] MEDS ORDERED: HALO5TAB PO (17:43)
[2024-01-30 19:00] VITALS: BP 130/80; PULSE 111; RESP 18; TEMP 99.6; O2SAT 98
[2024-01-30 19:35] VITALS: RESP 18; O2SAT 98
[2024-01-30 21:34] VITALS: RESP 18; O2SAT 98
[2024-01-31 07:00] VITALS: RESP 15; O2SAT 96
[2024-01-31 07:30] VITALS: BP 95/66; PULSE 90; RESP 15; TEMP 97.7; O2SAT 96
[2024-01-31] MEDS ORDERED: CLOZ100T13 PO ×3 (09:06)
[2024-01-31] MEDS ORDERED: CLOZ25TA12 PO (09:06)
[2024-01-31 19:00] VITALS: RESP 16; O2SAT 99
[2024-01-31 19:38] VITALS: BP 110/77; PULSE 83; RESP 16; TEMP 99.7; O2SAT 99
[2024-02-01 07:00] VITALS: RESP 14; O2SAT 98
[2024-02-01 07:30] VITALS: BP 95/57; PULSE 82; RESP 14; TEMP 97.7; O2SAT 98
[2024-02-01 19:00] VITALS: RESP 22; O2SAT 98
[2024-02-01 20:00] VITALS: BP 120/80; PULSE 108; RESP 22; TEMP 97.8; O2SAT 98
[2024-02-01] MEDS ORDERED: LORazepam 1 MG tablet PO PRN (22:20)
[2024-02-01] MEDS: ibuprofen 200mg tablet PO ONE (23:12)
[2024-02-02 07:00] VITALS: RESP 12; O2SAT 98
[2024-02-02 08:00] VITALS: BP 104/61; PULSE 82; RESP 12; TEMP 97.8; O2SAT 98
[2024-02-02 19:00] VITALS: RESP 18; O2SAT 98
[2024-02-02 20:00] VITALS: BP 109/67; PULSE 112; RESP 22; TEMP 97; O2SAT 96
[2024-02-02] MEDS: temazepam 15mg capsule PO ONE (22:03)
[2024-02-03 07:32] VITALS: BP 97/63; PULSE 79; RESP 12; TEMP 97.9; O2SAT 99
[2024-02-03 19:17] VITALS: RESP 20; O2SAT 100
[2024-02-03 19:21] VITALS: BP 125/84; PULSE 115; RESP 20; TEMP 97.4; O2SAT 100
[2024-02-03] MEDS: LORazepam 1 MG tablet PO ONE (21:46)
[2024-02-04 07:30] VITALS: BP 92/54; PULSE 83; RESP 18; TEMP 98.6; O2SAT 95
[2024-02-04 19:25] VITALS: BP 125/74; PULSE 118; RESP 16; TEMP 99.4; O2SAT 97
[2024-02-05 07:45] VITALS: BP 106/59; PULSE 83; RESP 16; TEMP 98.6; O2SAT 96
[2024-02-05 07:52] VITALS: RESP 16
== END 2024-02-05 09:08 | DRG 750 ==
LOC: ER 20:56 → ADULT MH 06-22 15:20
PROVIDERS: ADMIT Psychiatry & Neurology Psychiatry; ATTEND Psychiatry & Neurology Psychiatry
PROC: GZHZZZZ Group Psychotherapy (ICD-10-PCS; principal; 2023-06-23)
PROC: GZ51ZZZ Individual Psychotherapy, Behavioral (ICD-10-PCS; 2023-06-23)
DX: F25.9 Schizoaffective disorder, unspecified (principal); E86.1 Hypovolemia; F12.90 Cannabis use, unspecified, uncomplicated; F17.210 Nicotine dependence, cigarettes, uncomplicated; Z20.822 Contact with and (suspected) exposure to COVID-19; G47.00 Insomnia, unspecified; F41.9 Anxiety disorder, unspecified; F43.10 Post-traumatic stress disorder, unspecified
CPT/HCPCS: 36415; 71100; 80053; 80061; 80305; 80320; 81001; 82948; 83036; 83735; 83880; 84100; 84439; 84443; 85025; 85651; 86140; 87070; 87077; 87081; 87186; 87811; 90732; 99285; A4649; A6212; A6449; J1200; J1630; J2060; J3490